=== PATIENT | female | born 1950 | race Caucasian/White ===

== ENCOUNTER 2017-07-21 17:32 | Inpatient (IN) | payer MEDICARE, MEDICAID ==
[~2017-07-21] VITALS: Ht 154.9 cm; Wt 83.9 kg
[2017-07-21] MEDS ORDERED: MELA3TAB PO (17:51)
[2017-07-21] MEDS ORDERED: CALC-261 PO (17:51)
[2017-07-21] MEDS ORDERED: ACET-2605 PO (17:51)
[2017-07-21] MEDS ORDERED: MAG355OR18 PO (17:51)
[2017-07-21] MEDS ORDERED: HALO100A2 IM (17:51)
[2017-07-21] MEDS ORDERED: NA P133E RC (17:51)
[2017-07-21] MEDS ORDERED: ACET-2154 PO (17:51)
[2017-07-21] MEDS ORDERED: FERR325T24 PO (17:51)
[2017-07-21] MEDS ORDERED: BISA10SU12 RC (17:51)
[2017-07-21] MEDS ORDERED: ASCO500C18 PO (17:51)
[2017-07-21] MEDS ORDERED: SENN-167 PO (17:51)
[2017-07-21] MEDS ORDERED: CLON0.5T PO (17:51)
[2017-07-21] MEDS ORDERED: IBUP-1953 PO (17:51)
[2017-07-21] MEDS ORDERED: QUET50TA PO (17:51)
[2017-07-21] MEDS ORDERED: ESCI10TA PO (17:51)
[2017-07-21] MEDS ORDERED: MAGN400O6 PO (17:51)
[2017-07-21 18:08] LABS: BASOPHILS % (AUTO) 0.6 % (0.0-2.0); EOSINOPHILS # (AUTO) 0.6 K/uL (0.0-0.7); EOSINOPHILS % (AUTO) 9.1 % (0.0-7.0); HEMATOCRIT 37.1 % (31.2-41.9); HEMOGLOBIN 12.9 g/dL (10.9-14.3); LYMPHOCYTES # (AUTO) 2.7 K/uL (20.0-40.0); LYMPHOCYTES % (AUTO) 42.1 % (20.5-51.5); MEAN CORPUSCULAR HEMOGLOBIN 28.9 uug (24.7-32.8); MEAN CORPUSCULAR HGB CONC 35 g/dL (32.3-35.6); MEAN CORPUSCULAR VOLUME 82.8 fL (75.5-95.3); MONOCYTES # (AUTO) 0.6 K/uL (2.0-10.0); MONOCYTES % (AUTO) 9.7 % (0.0-11.0); NEUTROPHILS # (AUTO) 2.4 K/uL (1.8-8.9); NEUTROPHILS % (AUTO) 38.5 % (38.5-71.5); PLATELET COUNT (AUTO) 289 K/uL (179-408); RED BLOOD CELL COUNT(AUTO) 4.48 MIL/uL (3.63-4.92); WHITE BLOOD COUNT (AUTO) 6.3 K/uL (3.8-11.8)
[2017-07-21 18:20] LABS: ALANINE AMINOTRANSFERASE 18 U/L (14-59); ALKALINE PHOSPHATASE 87 U/L (50-136); ASPARTATE AMINOTRANSFERASE 15 U/L (15-37); BILIRUBIN,DIRECT 0.1 mg/dL (0.0-0.2); BILIRUBIN,TOTAL 0.3 mg/dL (0.2-1.0); CARBON DIOXIDE 27 mmol/L (21-32); CHLORIDE 98 mmol/L (98-107); CREATININE 0.8 mg/dL (0.6-1.3); GLUCOSE 93 mg/dL (74-106); POTASSIUM 3.8 mmol/L (3.5-5.1); TOTAL PROTEIN, SERUM 7.8 g/dL (6.4-8.2); UREA NITROGEN, BLOOD 14 mg/dL (7-18)
[2017-07-21 18:21] LABS: ACETAMINOPHEN < 2.0 ug/mL (10-30)
[2017-07-21 18:52] LABS: ETHANOL < 3 MG/DL (0-0)
[2017-07-21 19:00] LABS: THYROID STIMULATING HORMONE 2.288 mIU/mL (0.358-3.740)
--- NOTE | 2017-07-21 19:30 | NUR ---
Pt. admitted to [facility], under care of Dr. Snyder Belongs List completed
[2017-07-21] MEDS ORDERED: MAG HYDROX/AL HYDROX/SIMETH 30 ML LIQUID UDC PO PRN (20:00)
[2017-07-21] MEDS ORDERED: MAGNESIUM HYDROXIDE 30 ML LIQUID UDC PO PRN (20:00)
[2017-07-21] MEDS ORDERED: TEMAZEPAM 7.5 MG CAPSULE PO PRN (20:00)
[2017-07-21] MEDS ORDERED: Z GUARD REMEDY PASTE 57 GM TUBE TOP PRN (20:45)
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
--- NOTE | 2017-07-21 21:05 | NUR ---
PER PATIENT PERMISSION, SPOKE WITH LARRY SEYMOUR (PT'S BANANA EXPERT), SHE WAS ADVISED OF PATIENT'S HOLD. SHE STARED THAT SHE BELIEVES THAT PATIENT'S CURRENT PSYCH MEDICATION ARE MAKING HER DELUSIONAL AND PARANOID. SHE IS REQUESTING TO TALK TO DR. ERICKSON. SHE ALSO STARED THAT PATIENT HAD THE PNEUMOCOCCAL VACCINE 0N 06/2017. WILL ENDORSE TO INCOMING SHIFT.
[2017-07-21 21:18] LABS: *BILIRUBIN,URIN NEGATIVE (NEGATIVE); *BLOOD, URINE Trace-intact (NEGATIVE); *CLARITY,URINE CLEAR (CLEAR); *COLOR,URINE LIGHT YELLOW (YELLOW); *KETONES,URINE NEGATIVE (NEGATIVE); *PROTEIN,URINE NEGATIVE (NEGATIVE); *UROBILINOGEN,URINE 0.2 E.U./dl (NORMAL); LEUKOCYTE ESTERASE ,URINE TRACE (NEGATIVE); NITRITE, URINE NEGATIVE (NEGATIVE); UGLUCOSE NEGATIVE (NEGATIVE)
[2017-07-21 21:32] LABS: *AMPHETAMINE, URINE NEGATIVE (NEGATIVE); *BARBITURATE, URINE NEGATIVE (NEGATIVE); *CANNABINOID, URINE NEGATIVE (NEGATIVE); *COCCAINE, URINE NEGATIVE (NEGATIVE); *OPIATE, URINE NEGATIVE (NEGATIVE); *PHENCYCLIDINE SCREEN,URINE NEGATIVE (NEGATIVE)
[2017-07-21 21:43] LABS: SQUAMOUS EPITHELIAL CELL,UR FEW /HPF (NONE SEEN)
[2017-07-21] MEDS: Z GUARD REMEDY PASTE 57 GM TUBE TOP SCH (21:49)
--- NOTE | 2017-07-22 06:36 | NUR ---
PATIENT SLEPT FOR APPROX 7.30HRS THROUGH THE NIGHT. SHE REMAINS COOPERATIVE AND REDIRECTABLE AT THIS TIME.
[2017-07-22 08:00] VITALS: BP 100/54
[2017-07-22] MEDS: Z GUARD REMEDY PASTE 57 GM TUBE TOP SCH ×2 (10:14→21:13)
--- NOTE | 2017-07-22 11:47 | NUR ---
Firearms Report: Cloth Picker completed and submitted [employer] Firearms Report on 07/22/17.
[2017-07-22 16:00] VITALS: BP 159/83
--- NOTE | 2017-07-22 16:27 | NUR ---
Initial DC Instructions: Patient currently resides at [facility] [[address] [place] [address]; [phone]]. Per pt, she does not want to return there upon discharge. Spoke with patient's classification case manager/alleged DPOA, Shayymaryjane Humphrey ([phone]) who states that she would like the patient to return home if she is stable enough. SW will continue to collaborate with pt, family, and MD regarding appropriate discharge plan for this patient. SW will form a safe and proper discharge plan.
[2017-07-22] MEDS: ESCITALOPRAM OXALATE 10 MG TABLET PO SCH (17:38)
[2017-07-22] MEDS: IBUPROFEN 400 MG TABLET PO SCH (17:39)
[2017-07-22] MEDS: TRIHEXYPHENIDYL HCL 2 MG TABLET PO SCH (17:39)
[2017-07-22 20:00] VITALS: BP 140/74
[2017-07-22] MEDS: SENNOSIDES 1 TABLET PO SCH (20:43)
[2017-07-22] MEDS: QUETIAPINE FUMARATE 25 MG TABLET PO SCH (20:43)
[2017-07-22] MEDS: DIVALPROEX 500 MG TABLET.DR PO SCH (20:43)
[2017-07-22] MEDS ORDERED: DIVALPROEX 250 MG TABLET.DR PO SCH (21:00)
[2017-07-23 07:30] VITALS: BP 143/72
[2017-07-23] MEDS: Z GUARD REMEDY PASTE 57 GM TUBE TOP SCH ×2 (08:27→20:04)
[2017-07-23] MEDS ORDERED: Medication Not On Formulary EA (Ascorbic Acid (Vitamin C) 500 MG) PO SCH (09:00)
--- NOTE | 2017-07-23 09:20 | NUR ---
RECEIVED Pt IN THE DAY ROOM, A/O X 2, ABLE TO MAKE HER NEEDS KNOWN AND ABLE TO AMBULATE WITH STEADY GAIT. COMPLIANT WITH MEDS AND CARE STAFF, ATTENDS AND PARTICIPATES IN DAILY GROUP ACTIVITIES. WILL CONTINUE TO MONITOR Pt.
[2017-07-23] MEDS: IBUPROFEN 400 MG TABLET PO SCH ×2 (09:37→16:53)
[2017-07-23] MEDS: DIVALPROEX 500 MG TABLET.DR PO SCH ×2 (09:37→20:05)
[2017-07-23] MEDS: ESCITALOPRAM OXALATE 10 MG TABLET PO SCH (09:38)
[2017-07-23] MEDS: QUETIAPINE FUMARATE 25 MG TABLET PO SCH ×2 (09:38→20:04)
[2017-07-23] MEDS: ASCORBIC ACID 500 MG TABLET PO SCH (09:39)
[2017-07-23] MEDS: TRIHEXYPHENIDYL HCL 2 MG TABLET PO SCH ×2 (09:39→16:53)
[2017-07-23] MEDS: CALCIUM CARB/VITAMIN D 500MG-200UNITS TABLET PO SCH (09:39)
[2017-07-23] MEDS: FERROUS SULFATE 325 MG TABEC PO SCH (09:39)
[2017-07-23] MEDS: NITROFURANTOIN/NITROFURAN MAC 100 MG CAPSULE PO SCH ×2 (09:39→20:04)
[2017-07-23 14:34] VITALS: BP 118/71
[2017-07-23] MEDS: SENNOSIDES 1 TABLET PO SCH (20:04)
[2017-07-23 20:07] VITALS: BP 139/72
--- NOTE | 2017-07-24 06:35 | NUR ---
REMAIN CALM AND COOPERATIVE. SLEPT 8 HRS THROUGH THE NIGHT. NO C/O PAIN OR DISCOMFORT AT THIS TIME. CONTINUE MONITORING FOR SAFETY.
[2017-07-24 08:15] VITALS: BP 117/61
[2017-07-24] MEDS: CALCIUM CARB/VITAMIN D 500MG-200UNITS TABLET PO SCH (08:44)
[2017-07-24] MEDS: QUETIAPINE FUMARATE 25 MG TABLET PO SCH ×2 (08:44→20:00)
[2017-07-24] MEDS: ASCORBIC ACID 500 MG TABLET PO SCH (08:45)
[2017-07-24] MEDS: DIVALPROEX 500 MG TABLET.DR PO SCH ×2 (08:45→20:00)
[2017-07-24] MEDS: TRIHEXYPHENIDYL HCL 2 MG TABLET PO SCH ×2 (08:45→17:08)
[2017-07-24] MEDS: ESCITALOPRAM OXALATE 10 MG TABLET PO SCH (08:45)
[2017-07-24] MEDS: CYANOCOBALAMIN 1000 MCG/ML VIAL IM SCH (08:46)
[2017-07-24] MEDS: NITROFURANTOIN/NITROFURAN MAC 100 MG CAPSULE PO SCH ×2 (08:46→20:00)
[2017-07-24] MEDS: IBUPROFEN 400 MG TABLET PO SCH ×2 (08:46→17:08)
[2017-07-24] MEDS: FERROUS SULFATE 325 MG TABEC PO SCH (08:46)
[2017-07-24] MEDS: Z GUARD REMEDY PASTE 57 GM TUBE TOP SCH ×2 (09:20→20:00)
--- NOTE | 2017-07-24 09:20 | NUR ---
RECEIVED Pt IN DAY ROOM WATCHING TV, A/O X 2, CALM AND PLEASANT, COMPLIANT WITH MEDS AND COOPERATIVE WITH CARE STAFF. CLEAR SPEECH, NOTED DELUSIONS DURING CONVERSATION. Pt ABLE TO HOLD CONVERSATION AND STAY ON TOPIC BUT BECOMES TANGENTIAL AND QUICKLY JUMPS FROM ONE SUBJECT TO ANOTHER. Pt UNDERSTOOD INSTRUCTIONS REGARDING MEDS AND AGREED FOR MEDS TO BE GIVEN/ADMINISTERED BUT BEGAN SHOWING SIGNS OF DELUSION STATING, "OKAY YOU CAN GIVE ME THOSE MEDS SINCE I ALREADY HAD MY BABY LAST NIGHT. I WENT OUT AFTERWARDS AND ACQUIRED NEW SUPERPOWERS." Pt WAS REDIRECTED BY NURSE AFTERWARDS, CONTINUED TO COMPLY WITH MEDS.
[2017-07-24 15:47] VITALS: BP 112/61
[2017-07-24] MEDS: ACETAMINOPHEN 325 MG TABLET PO PRN (19:43)
[2017-07-24 19:54] VITALS: BP 146/58
[2017-07-24] MEDS: SENNOSIDES 1 TABLET PO SCH (20:00)
--- NOTE | 2017-07-25 06:54 | NUR ---
RECEIVED Pt IN THE DAY ROOM WATCHING TV AND CONVERSING WITH PEERS. Pt IS HYPERVERBAL WITH FLAT AFFECT AND PRESSURED SPEECH, CIRCUMSTANTIAL AND TANGENTIAL IN THOUGHT PROCESS. Pt IS ANXIOUS, NEEDY, AND ATTENTION-SEEKING, ASKING FOR MULTIPLE ITEMS SUCH SNACKS, THE TV REMOTE, AND MEDICATIONS. Pt C/O 9/10 KNEE PAIN, TYLENOL 650mg ADMINISTERED WITH GOOD EFFECT. Pt DENIES SI/HI/AH/VH, CFS. APPEARS ANXIOUS AND SOMEWHAT RESTLESS. A+Ox3, VS STABLE. NO AGGRESSIVE BEHAVIORS. IN NO ACUTE PHYSICAL DISTRESS.
[2017-07-25 08:00] VITALS: BP 139/75
[2017-07-25] MEDS: DIVALPROEX 500 MG TABLET.DR PO SCH ×2 (08:50→20:04)
[2017-07-25] MEDS: TRIHEXYPHENIDYL HCL 2 MG TABLET PO SCH ×2 (08:50→17:03)
[2017-07-25] MEDS: NITROFURANTOIN/NITROFURAN MAC 100 MG CAPSULE PO SCH ×2 (08:50→20:05)
[2017-07-25] MEDS: ESCITALOPRAM OXALATE 10 MG TABLET PO SCH (08:51)
[2017-07-25] MEDS: CALCIUM CARB/VITAMIN D 500MG-200UNITS TABLET PO SCH (08:53)
[2017-07-25] MEDS: FERROUS SULFATE 325 MG TABEC PO SCH (08:53)
[2017-07-25] MEDS: CYANOCOBALAMIN 1000 MCG/ML VIAL IM SCH (08:53)
[2017-07-25] MEDS: IBUPROFEN 400 MG TABLET PO SCH ×2 (08:53→17:03)
[2017-07-25] MEDS: QUETIAPINE FUMARATE 25 MG TABLET PO SCH ×2 (08:53→20:04)
[2017-07-25] MEDS: ASCORBIC ACID 500 MG TABLET PO SCH (08:54)
[2017-07-25] MEDS: Z GUARD REMEDY PASTE 57 GM TUBE TOP SCH ×2 (08:54→20:58)
--- NOTE | 2017-07-25 09:05 | NUR ---
RECEIVED Pt IN DAY ROOM WATCHING TV, A/O X 2, CALM AND PLEASANT, COMPLIANT WITH MEDS AND COOPERATIVE WITH CARE STAFF. NO DELUSIONS NOTED DURING ASSESSMENT AND CONVERSATION, Pt IS ABLE TO COMPREHEND REASONS FOR TAKING MEDS AND CARE PLAN. ADMINISTERED ALL MEDS INCLUDING CYANOCOBALAMIN IM INJECTION THIS MORNING.
[2017-07-25 16:29] VITALS: BP 139/71
[2017-07-25 20:00] VITALS: BP 147/80
[2017-07-25] MEDS: SENNOSIDES 1 TABLET PO SCH (20:04)
--- NOTE | 2017-07-26 06:58 | NUR ---
RECEIVED Pt IN THE BATHROOM OF HER ROOM. Pt WAS OVERHEARD TALKING, AND WHEN RN WENT TO CHECK ON HER, Pt WAS FOUND TO BE TALKING TO HERSELF AND UNSEEN OTHERS. Pt OVERHEARD RTIS, MAKING NON-SENSICAL AND BIZARRE STATEMENTS. WHEN ASKED IF SHE WAS OK, Pt RESPONDED, YES, IM JUST HAVING A CONVERSATION WITH MYSELF. DENIES SI/HI, CFS. VS STABLE, DENIES PAIN, IN NO ACUTE PHYSICAL DISTRESS. SLEPT 5.30 HOURS.
[2017-07-26 07:30] VITALS: BP 137/78
[2017-07-26] MEDS: DIVALPROEX 500 MG TABLET.DR PO SCH ×2 (08:57→21:25)
[2017-07-26] MEDS: FERROUS SULFATE 325 MG TABEC PO SCH (08:57)
[2017-07-26] MEDS: NITROFURANTOIN/NITROFURAN MAC 100 MG CAPSULE PO SCH ×2 (08:57→21:25)
[2017-07-26] MEDS: CYANOCOBALAMIN 1000 MCG/ML VIAL IM SCH (08:57)
[2017-07-26] MEDS: TRIHEXYPHENIDYL HCL 2 MG TABLET PO SCH ×2 (08:57→16:40)
[2017-07-26] MEDS: QUETIAPINE FUMARATE 25 MG TABLET PO SCH ×2 (08:57→21:26)
[2017-07-26] MEDS: IBUPROFEN 400 MG TABLET PO SCH ×2 (08:57→16:40)
[2017-07-26] MEDS: ASCORBIC ACID 500 MG TABLET PO SCH (08:57)
[2017-07-26] MEDS: CALCIUM CARB/VITAMIN D 500MG-200UNITS TABLET PO SCH (08:58)
[2017-07-26] MEDS: ESCITALOPRAM OXALATE 10 MG TABLET PO SCH (08:58)
[2017-07-26] MEDS: Z GUARD REMEDY PASTE 57 GM TUBE TOP SCH ×2 (08:59→21:56)
[2017-07-26 15:37] VITALS: BP 127/69
--- NOTE | 2017-07-26 18:00 | NUR ---
GPS: Pt remained stable during shift. Noted responding to internal stimuli while ambulating in hallways then smiles at staff upon eye contact. Mood elated. Denies SI/HI, CFS. VS stable. Took all due meds. Receiving Macrobid for UTI. No adverse side effects noted. Continent and voiding freely. Noted with clear yellow urine. Denies burning sensation. Taking PO fluids well. Afebrile. All needs met at this time. Will continue to monitor.
[2017-07-26 20:00] VITALS: BP 148/69
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
[2017-07-26] MEDS: SENNOSIDES 1 TABLET PO SCH (21:29)
--- NOTE | 2017-07-27 07:04 | NUR ---
PATIENT SLEPT FOR APPROX 5.30 HRS THROUGH THE NIGHT. SHE HAD A SHOWER,
[2017-07-27 07:30] VITALS: BP 131/85
[2017-07-27] MEDS: NITROFURANTOIN/NITROFURAN MAC 100 MG CAPSULE PO SCH (09:00)
[2017-07-27] MEDS: FERROUS SULFATE 325 MG TABEC PO SCH (09:00)
[2017-07-27] MEDS: CYANOCOBALAMIN 1000 MCG/ML VIAL IM SCH (09:00)
[2017-07-27] MEDS: ASCORBIC ACID 500 MG TABLET PO SCH (09:00)
[2017-07-27] MEDS: CALCIUM CARB/VITAMIN D 500MG-200UNITS TABLET PO SCH (09:00)
[2017-07-27] MEDS: DIVALPROEX 500 MG TABLET.DR PO SCH ×2 (09:00→20:02)
[2017-07-27] MEDS: TRIHEXYPHENIDYL HCL 2 MG TABLET PO SCH ×2 (09:00→16:21)
[2017-07-27] MEDS: IBUPROFEN 400 MG TABLET PO SCH ×2 (09:00→16:21)
[2017-07-27] MEDS: ESCITALOPRAM OXALATE 10 MG TABLET PO SCH (09:00)
[2017-07-27] MEDS: Z GUARD REMEDY PASTE 57 GM TUBE TOP SCH ×2 (09:00→20:02)
[2017-07-27 15:23] VITALS: BP 130/63
[2017-07-27] MEDS: CLONAZEPAM 0.5 MG TABLET PO PRN (16:21)
--- NOTE | 2017-07-27 18:29 | NUR ---
patient has been out of control most of shift calling nurse derogatory names and balling fist up , medicated with klonopin 0.5mg at 1625 with fair results,then at 18 30 started yelling agin very dis organized and flight of ideas , continue to monitor for behavior
[2017-07-27] MEDS: SENNOSIDES 1 TABLET PO SCH (20:02)
--- NOTE | 2017-07-27 20:15 | NUR ---
RECEIVED PATIENT IN HER ROOM. SHE IS NOTED A/O X 2. SHE IS ABLE TO AMBULATE WITH STEADY GAIT AND ABLE TO MAKE HER NEEDS KNOWN. UPON INTERVIEW, SHE IS NOTED WITH FLIGHT OF IDEAS, TANGENTIAL, HYPERVERBAL, CONFUSED, SHE STATED, "MY BROTHER PASS AWAY, SO I WOULD LIKE TO HAVE HIS WATCH, HOW DO I GET HIS WATCH"? PT WAS REDIRECTED AND REASSURED. PT DENIES SI, DENIES AH/VH AT THIS TIME. SHE REMAINS MEDICATION COMPLIANT WITH MEDICATION REGIMENT. HER B/P WAS AT 1999 WAS 166/77MMHG AND HER PULSE IS 72BPM. PATIENT WAS GIVEN ALL HER QHS MEDICATIONS, INCLUDING SEROQUEL 100MG PO. WILL RECHECK BP IN ONE HOUR. SAFETY WAS EMPHASIS. WE WILL CONTINUE TO MONITOR CLOSELY.
[2017-07-27] MEDS ORDERED: QUETIAPINE FUMARATE 100 MG TABLET PO SCH (21:00)
--- NOTE | 2017-07-27 21:30 | NUR ---
B/P WAS RECHECKED: 101/36MMGH AND PULSE 91. WE WILL RECHECKS IN ONE HOUR. WILL CONTINUE TO MONITOR CLOSELY.
[2017-07-27 22:21] VITALS: BP 101/36
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
--- NOTE | 2017-07-28 07:00 | NUR ---
RECEIVED REPORT FROM KILN REPAIRER, PATIENT IN RECREATIONAL ROOM, NO ACUTE DISTRESS NOTED. NO SI NOTED. COMPLIANT WITH MEDICATION AND CARE. SAFETY PRECAUTIONS OBSERVED AT ALL TIMES. NO COMPLAINTS OF PAIN/DISCOMFORT AT THIS TIME.COMFORT MEASURES PROVIDED. WILL CONTINUE TO MONITOR CLOSELY.
[2017-07-28 07:30] VITALS: BP 130/64
[2017-07-28] MEDS: CYANOCOBALAMIN 1000 MCG/ML VIAL IM SCH (08:57)
[2017-07-28] MEDS: ESCITALOPRAM OXALATE 10 MG TABLET PO SCH (08:57)
[2017-07-28] MEDS: DIVALPROEX 500 MG TABLET.DR PO SCH ×2 (08:57→20:20)
[2017-07-28] MEDS: CALCIUM CARB/VITAMIN D 500MG-200UNITS TABLET PO SCH (08:57)
[2017-07-28] MEDS: ASCORBIC ACID 500 MG TABLET PO SCH (08:57)
[2017-07-28] MEDS: FERROUS SULFATE 325 MG TABEC PO SCH (09:00)
[2017-07-28] MEDS: IBUPROFEN 400 MG TABLET PO SCH ×2 (09:00→17:02)
[2017-07-28] MEDS: TRIHEXYPHENIDYL HCL 2 MG TABLET PO SCH ×2 (09:01→17:02)
[2017-07-28] MEDS: QUETIAPINE FUMARATE 25 MG TABLET PO SCH (09:03)
[2017-07-28] MEDS: Z GUARD REMEDY PASTE 57 GM TUBE TOP SCH ×2 (09:04→20:20)
[2017-07-28 14:39] VITALS: BP 142/76
--- NOTE | 2017-07-28 17:48 | NUR ---
PATIENT IN RECREATION ROOM, EATING DINNER. NO ACUTE DISTRESS NOTED. COMPLIANT WITH MEDICATION AND CARE. NO S/S OF ANXIETY/AGITATION AT THIS TIME. ALL NEEDS ATTENDED AND ANTICIPATED. WILL CONTINUE TO MONITOR.
[2017-07-28 20:00] VITALS: BP 126/65
[2017-07-28] MEDS: QUETIAPINE FUMARATE 100 MG TABLET PO SCH (20:18)
[2017-07-28] MEDS: SENNOSIDES 1 TABLET PO SCH (20:20)
--- NOTE | 2017-07-28 21:12 | NUR ---
RECEIVED Pt IN DAY ROOM WATCHING TV, A/O X 2, CALM AND PLEASANT, COMPLIANT WITH MEDS AND COOPERATIVE WITH CARE STAFF. SLIGHT DELUSIONS NOTED DURING CONVERSATION, Pt STATING AT TIMES, "I GOT NEW SUPERPOWERS AGAIN, ASK GERTRUDE WHEN YOU SEE HIM." Pt REDIRECTED AND ABLE TO RETURN TO TOPIC OF CONVERSATION EASILY. DENIES SI AND AGREES TO CFS.
--- NOTE | 2017-07-29 06:29 | NUR ---
Pt SLEPT WELL THROUGHOUT THE NIGHT, WOKE UP THIS MORNING ASKING FOR A SHOWER. WAS GIVEN SHOWER, Pt NOW IN DAY ROOM WATCHING TV. COMPLIANT WITH MEDS AND CARE STAFF. DENIES PAIN AT THIS TIME, NO AGGRESSIVE BEHAVIOR NOTED.
--- NOTE | 2017-07-29 07:00 | NUR ---
RECEIVED REPORT FROM BELT AND LINK SHOP SUPERVISOR NURSE. PATIENT IN BED ASLEEP NO ACUTE DISTRESS NOTED. NO AGITATION/SI NOTED AT THIS TIME. CONTINUES TO BE COMPLIANT WITH MEDICATIONS. NO C/O PAIN/DISCOMFORT. COMFORT MEASURES PROVIDED. WILL CONTINUE TO MONITOR.
[2017-07-29 08:00] VITALS: BP 129/64
[2017-07-29] MEDS: DIVALPROEX 500 MG TABLET.DR PO SCH ×2 (08:09→20:18)
[2017-07-29] MEDS: ASCORBIC ACID 500 MG TABLET PO SCH (08:09)
[2017-07-29] MEDS: CALCIUM CARB/VITAMIN D 500MG-200UNITS TABLET PO SCH (08:09)
[2017-07-29] MEDS: CYANOCOBALAMIN 1000 MCG/ML VIAL IM SCH (08:09)
[2017-07-29] MEDS: IBUPROFEN 400 MG TABLET PO SCH ×2 (08:11→16:47)
[2017-07-29] MEDS: ESCITALOPRAM OXALATE 10 MG TABLET PO SCH (08:11)
[2017-07-29] MEDS: FERROUS SULFATE 325 MG TABEC PO SCH (08:11)
[2017-07-29] MEDS: TRIHEXYPHENIDYL HCL 2 MG TABLET PO SCH ×2 (08:11→16:47)
[2017-07-29] MEDS: Z GUARD REMEDY PASTE 57 GM TUBE TOP SCH ×2 (08:11→20:43)
[2017-07-29] MEDS: QUETIAPINE FUMARATE 25 MG TABLET PO SCH (08:22)
[2017-07-29 16:23] VITALS: BP 125/62
--- NOTE | 2017-07-29 18:12 | NUR ---
PATIENT IN DAY ROOM, CURRENTLY WATCHING TV, ATE DINNER WITH GOOD APPETITE. COMPLIANT WITH MEDICATIONS, NO EPISODES OF AGITATION/PSYCHOTIC BEHAVIOR THROUGHOUT SHIFT. DENIES SI. ALL NEEDS ATTENDED AND ANTICIPATED. WILL CONTINUE TO MONITOR.
[2017-07-29 20:00] VITALS: BP 125/50
[2017-07-29] MEDS: QUETIAPINE FUMARATE 100 MG TABLET PO SCH (20:18)
[2017-07-29] MEDS: SENNOSIDES 1 TABLET PO SCH (20:18)
--- NOTE | 2017-07-30 06:39 | NUR ---
GPS: Remain calm and cooperative with medications and care. slept 6 hrs through the night.no agitation noted at this time. continue plan of care.
--- NOTE | 2017-07-30 07:25 | NUR ---
RECEIVED Pt IN DAY ROOM WATCHING TV, A/O X 2, CALM AND PLEASANT, COMPLIANT WITH MEDS AND COOPERATIVE WITH CARE STAFF. SLIGHT DELUSIONS NOTED DURING CONVERSATION, . DENIES SI AND AGREES TO CFS.
[2017-07-30 07:30] VITALS: BP 125/59
[2017-07-30] MEDS: DIVALPROEX 500 MG TABLET.DR PO SCH ×2 (08:06→20:21)
[2017-07-30] MEDS: TRIHEXYPHENIDYL HCL 2 MG TABLET PO SCH ×2 (08:06→16:02)
[2017-07-30] MEDS: ASCORBIC ACID 500 MG TABLET PO SCH (08:06)
[2017-07-30] MEDS: QUETIAPINE FUMARATE 100 MG TABLET PO SCH ×2 (08:06→20:22)
[2017-07-30] MEDS: CALCIUM CARB/VITAMIN D 500MG-200UNITS TABLET PO SCH (08:06)
[2017-07-30] MEDS: IBUPROFEN 400 MG TABLET PO SCH ×2 (08:07→16:02)
[2017-07-30] MEDS: FERROUS SULFATE 325 MG TABEC PO SCH (08:07)
[2017-07-30] MEDS: ESCITALOPRAM OXALATE 10 MG TABLET PO SCH (08:07)
[2017-07-30] MEDS: CYANOCOBALAMIN 1000 MCG/ML VIAL IM SCH (08:08)
[2017-07-30] MEDS: Z GUARD REMEDY PASTE 57 GM TUBE TOP SCH ×2 (08:08→20:35)
[2017-07-30] MEDS ORDERED: QUETIAPINE FUMARATE 25 MG TABLET PO SCH (09:00)
[2017-07-30 15:03] VITALS: BP 103/66
--- NOTE | 2017-07-30 15:24 | NUR ---
WEDNESDAY Discharge Note: Patient will be discharged back home [[address] [place] [address]; [phone]] via private transportation at 11am. Spoke with patient's brother, Yony Diaz ([phone]) who is willing to provide transportation and is aware and agreeable with discharge plans. Spoke with patient's caregiver, Shayy Humphrey ([phone]) who is also aware and agreeable with discharge plans. Patient is aware and agreeable with discharge plans. Patient will follow-up with her Primary Care Physician, Dr. Nuñez [[address] [place] [address]; [phone]) and her outpatient Psychiatrist, Dr. Orlando Rivas [[facility] [address] [place] [address]; ]. Home Health order was faxed to [facility] (tel. [phone]; fax [phone]) for medication management, PT and OT. Spoke with Payton in Intake, and patient was accepted with start of care on 08/02/17. For smoking cessation, patient was referred to [facility] [employer] 800-LUNGUSA and [facility] [employer] [phone]. Patient was provided with outpatient mental health resources to [facility] , [facility] , and the National Suicide Prevention Lifeline .
[2017-07-30 20:04] VITALS: BP 121/55
[2017-07-30] MEDS: SENNOSIDES 1 TABLET PO SCH (20:22)
--- NOTE | 2017-07-30 20:30 | NUR ---
RECEIVED Pt IN DAY ROOM WATCHING TV, NOTED SLIGHT DELUSIONS BUT WAS ABLE TO HOLD CONVERSATION WITH NURSE DURING ASSESSMENT. Pt UNDERSTANDS THAT SHE IS GOING HOME TOMORROW. COMPLIANT AND COOPERATIVE WITH MEDS AND CARE STAFF. NO AGGRESSIVE BX OR DISTRESS NOTED.
--- NOTE | 2017-07-30 21:30 | NUR ---
Pt WAS FOUND LAYING ON THE FLOOR OUTSIDE OF HER ROOM, YELLING FOR HELP. NURSE AND OTHER UNIT STAFF RUSHED TO ATTEND TO Pt NEEDS. WHEN ASKED WHAT HAPPENED, Pt STATED, "I WAS WALKING TOO FAST WITH MY WALKER AND FELL." Pt WAS ASSESSED FOR INJURY, VS WERE TAKEN AND RECORD. NO INJURIES FOUND, VS STABLE. CALLED AND LEFT MESSAGE TO NOTIFY DR. KRUEGER. WILL CALL PSYCHIATRIST TO NOTIFY OF INCIDENT. Pt CURRENTLY DENIES PAIN AND NO DISTRESS NOTED.
--- NOTE | 2017-07-30 23:57 | NUR ---
Patient noted to be walking around with her walker in the hallway back-forth, appeared anxious and said she can't wait to be discharged tomorrow. Assisted patient back to bed and offered Temazepam to patient for her to sleep. Will continue to monitor the patient.
--- NOTE | 2017-07-31 01:15 | NUR ---
Seen patient during hourly rounds still awake but already in bed. I asked the patient if she's okay, per patient " I can't wait to go home tomorrow." Encourage patient to try and sleep again since it's past midnight already. Patient agreed and said she will. Will continue to monitor patient.
--- NOTE | 2017-07-31 04:15 | NUR ---
Patient found on floor inside the restroom, in a sitting position with her walker in front of her, calling for help. Her gown, socks,in between her legs and her walkway noted to be wet. When asked patient what happened, per patient " I wanted to pee badly that's why I got up by myself to go to the bathroom." Assessed patient for any injury, no injury noted. V/S taken and recorded, WNL. Will call on-call MD, Psychiatrist and RN Vinegar Maker on duty to notify the incident. Denies of any pain. Will continue to monitor the patient..
--- NOTE | 2017-07-31 04:25 | NUR ---
MD Dr. Garcia informed, with new order of CT scan on the head w/o contrast, noted and carried out. RN filtration supervisor also made aware. Will call Psychiatrist. Will continue to monitor the patient.
--- NOTE | 2017-07-31 06:52 | NUR ---
DR ERICKSON WAS NOTIFY OF PATIENT FALLS X 2. PER DR ERICKSON, TO HOLD DISCHARGE UNTIL WEDNESDAY. WE WILL CONTINUE TO MONITOR.
[2017-07-31 07:30] VITALS: BP 140/67
--- NOTE | 2017-07-31 07:30 | NUR ---
GPS: Shift report given by nightshift RN. Pt in bed asleep, easily arousable to name. Status post fall during noc shift. Head CT negative. A&O to person and place. Sustained no injuries. Denies pain at this time. Pt will have 1:1 sitter for safety. Educated pt on asking for assistance everytime she needs to use the restroom or wants to transfer out of bed and ambulate with her FWW. Verbalized understanding. All needs met at this time. Will continue to monitor for change.
--- NOTE | 2017-07-31 07:59 | NUR ---
LEFT MESSAGE TO BROTHKAYLYN REARDON AT [phone] AND [phone] ABOUT PATIENT HOLD DISCHARGED DUE TO FALLS X2 PER DR. ERICKSON. WILL CONTINUE TO MONITOR.
[2017-07-31] MEDS: TRIHEXYPHENIDYL HCL 2 MG TABLET PO SCH ×2 (08:33→16:41)
[2017-07-31] MEDS: ASCORBIC ACID 500 MG TABLET PO SCH (08:33)
[2017-07-31] MEDS: IBUPROFEN 400 MG TABLET PO SCH ×2 (08:33→16:41)
[2017-07-31] MEDS: QUETIAPINE FUMARATE 100 MG TABLET PO SCH ×2 (08:34→21:05)
[2017-07-31] MEDS: DIVALPROEX 500 MG TABLET.DR PO SCH ×2 (08:34→21:05)
[2017-07-31] MEDS: CALCIUM CARB/VITAMIN D 500MG-200UNITS TABLET PO SCH (08:34)
[2017-07-31] MEDS: ESCITALOPRAM OXALATE 10 MG TABLET PO SCH (08:34)
[2017-07-31] MEDS: FERROUS SULFATE 325 MG TABEC PO SCH (08:34)
[2017-07-31] MEDS: Z GUARD REMEDY PASTE 57 GM TUBE TOP SCH ×2 (08:35→21:06)
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
[2017-07-31] MEDS: ACETAMINOPHEN 325 MG TABLET PO PRN (11:18)
[2017-07-31 16:42] VITALS: BP 105/63
--- NOTE | 2017-07-31 18:31 | NUR ---
GPS: Pt remained in fair condition during shift. 1:1 sitter at side at all times for safety. Continues to be sad and depressed. Appears to be withdrawn and anxious at times. Took all due meds. Compliant with plan of care at this time. Able to provide self care without prompting needed. Assisted as needed for safety. Status post fall during noc shift. No s/s of injury noted. Denies pain. No change in LOC. All needs met at this time. Will continue to monitor for change.
[2017-07-31 20:30] VITALS: BP 128/60
[2017-07-31] MEDS: SENNOSIDES 1 TABLET PO SCH (21:05)
[2017-07-31] MEDS: CLONAZEPAM 0.5 MG TABLET PO PRN (21:50)
--- NOTE | 2017-08-01 02:38 | NUR ---
On 1:1 sitter at bedside. Had some periods of agitation this shift. Klonopin given as needed. Fall precautions maintained. Needs attended, Will monitor patient. No complaints presented during shift. No delusional episodes or hallucinations noted. Compliant with meds.
[2017-08-01 07:30] VITALS: BP 131/54
--- NOTE | 2017-08-01 07:30 | NUR ---
GPS: Shift report given by nightshift RN. Rec'd in bed asleep, easily arousable to name. 1:1 sitter at bedside for safety. Pt in fair condition. No s/s of acute distress noted. Rec'd PRN Klonopin during noc shift for episode of agitation. Will continue to monitor for further episode of agitation and behavioral manifestations.
[2017-08-01] MEDS: CALCIUM CARB/VITAMIN D 500MG-200UNITS TABLET PO SCH (08:01)
[2017-08-01] MEDS: ASCORBIC ACID 500 MG TABLET PO SCH (08:01)
[2017-08-01] MEDS: DIVALPROEX 500 MG TABLET.DR PO SCH ×2 (08:01→20:23)
[2017-08-01] MEDS: Z GUARD REMEDY PASTE 57 GM TUBE TOP SCH ×2 (08:02→20:23)
[2017-08-01] MEDS: TRIHEXYPHENIDYL HCL 2 MG TABLET PO SCH ×2 (08:02→16:43)
[2017-08-01] MEDS: ESCITALOPRAM OXALATE 10 MG TABLET PO SCH (08:02)
[2017-08-01] MEDS: QUETIAPINE FUMARATE 100 MG TABLET PO SCH ×2 (08:02→20:23)
[2017-08-01] MEDS: IBUPROFEN 400 MG TABLET PO SCH ×2 (08:02→16:43)
[2017-08-01] MEDS: FERROUS SULFATE 325 MG TABEC PO SCH (08:02)
[2017-08-01] MEDS: CLONAZEPAM 0.5 MG TABLET PO PRN (09:23)
[2017-08-01] MEDS: CLOTRIMAZOLE/BETAMET DIPROP CREAM 15 GM TUBE TOP SCH ×2 (15:25→20:23)
[2017-08-01 15:36] VITALS: BP 127/69
[2017-08-01] MEDS: SENNOSIDES 1 TABLET PO SCH (20:23)
--- NOTE | 2017-08-01 20:53 | NUR ---
gps: patient c/o constipation.mom 30 ml po given.
[2017-08-01 22:24] VITALS: BP 139/73
--- NOTE | 2017-08-02 06:10 | NUR ---
REMAIN CALM AND COOPERATIVE WITH MEDICATIONS AND CARE. CONTINUE ON 1:1 SITTER @ BEDSIDE FOR SAFETY.SLEPT 6 HRS THROUGH THE NIGHT.NO BEHAVIOR PROBLEM NOTED. CONTINUE PLAN OF CARE.
[2017-08-02 07:30] VITALS: BP 136/65
[2017-08-02] MEDS: FERROUS SULFATE 325 MG TABEC PO SCH (08:02)
[2017-08-02] MEDS: TRIHEXYPHENIDYL HCL 2 MG TABLET PO SCH ×2 (08:02→16:17)
[2017-08-02] MEDS: DIVALPROEX 500 MG TABLET.DR PO SCH (08:02)
[2017-08-02] MEDS: QUETIAPINE FUMARATE 100 MG TABLET PO SCH (08:02)
[2017-08-02] MEDS: IBUPROFEN 400 MG TABLET PO SCH ×2 (08:02→16:17)
[2017-08-02] MEDS: ASCORBIC ACID 500 MG TABLET PO SCH (08:02)
[2017-08-02] MEDS: CALCIUM CARB/VITAMIN D 500MG-200UNITS TABLET PO SCH (08:02)
[2017-08-02] MEDS: ESCITALOPRAM OXALATE 10 MG TABLET PO SCH (08:02)
[2017-08-02] MEDS: CLOTRIMAZOLE/BETAMET DIPROP CREAM 15 GM TUBE TOP SCH (09:43)
[2017-08-02] MEDS: Z GUARD REMEDY PASTE 57 GM TUBE TOP SCH (09:44)
--- NOTE | 2017-08-02 13:32 | NUR ---
Updated Discharge Note: Patient will be discharged to [facility] [[address] [place] [address]; [phone]] via ambulance. Spoke with CJ at the facility who states that they are ready to accept the patient today. Spoke with patients brotherYony ([phone]) who is aware and agreeable with discharge plans. Left message for patients anatomic pathology manager, Shayy ([phone]) to alert about patients discharge plans. Patient is aware and agreeable with discharge plans. Patient will follow up at the facility with Dr. Gu (Solution Spec) and Dr. Oreilly (Psychiatrist).
[2017-08-02 15:38] VITALS: BP 115/71
--- NOTE | 2017-08-02 18:45 | NUR ---
GPS: Nursing Notes: Discharge Notes: Patient is awake and responding to her name, cooperative with nursing care, compliant with her medications, denies any SI/HI, denies any AH/VH, denies any pain or discomfort, denies any SOB, discharge to [facility] at [address] [place] [id number] , report given to Marlene RN labor relations supervisor. film processing utility worker spoke with patient's brother, Yony ([phone]) who is aware and agreeable with discharge plans. Left message for patient's flame burner, Shayy ([phone]) to alert him about patients discharge plans. Patient will follow up at the facility with Dr. Gu (Horse Stud Worker) and Dr. Oreilly (Psychiatrist) for aftercare.
[2017-08-06] MEDS ORDERED: CYANOCOBALAMIN 1000 MCG/ML VIAL IM SCH (09:00)
[2017-09-26] MEDS ORDERED: CYANOCOBALAMIN 1000 MCG/ML VIAL IM SCH (09:00)
== END 2017-08-02 18:45 | disposition hospice, inpatient (51) | DRG 885 ==
LOC: ER 17:36 → GPS 19:12
PROVIDERS: ADMIT Psychiatry & Neurology Psychiatry; ATTEND Nurse Practitioner Acute Care
DX: F25.0 Schizoaffective disorder, bipolar type (principal); E44.1 Mild protein-calorie malnutrition; N39.0 Urinary tract infection, site not specified; G31.9 Degenerative disease of nervous system, unspecified; G89.29 Other chronic pain; Z79.899 Other long term (current) drug therapy; M54.5 Low back pain; M19.90 Unspecified osteoarthritis, unspecified site; Z68.35 Body mass index [BMI] 35.0-35.9, adult; E78.5 Hyperlipidemia, unspecified; D51.0 Vitamin B12 deficiency anemia due to intrinsic factor deficiency; G31.84 Mild cognitive impairment of uncertain or unknown etiology
CPT/HCPCS: 36415; 70030-TC; 70450; 71045; 80164; 80307; 83605; 84443; 85025; 85730; 87040; 87086; 93005; A4663; G0480; G0480-TC; J3420

== ENCOUNTER 2020-12-10 18:06 | Inpatient (IN) | payer MEDICARE, OTHER ==
[~2020-12-10] VITALS: Ht 152.4 cm; Wt 83.9 kg
[~2020-12-10 18:06] MED LIST: ACET-2154 PO; ACET-2605 PO; ASCO500C18 PO; BISA10SU12 RC; CALC-261 PO; FERR325T24 PO; IBUP-1953 PO; MAG355OR18 PO; MAGN400O6 PO; NA P133E RC; SENN-261 PO
[2020-12-10] MEDS ORDERED: MAGN400O6 PO (19:18)
[2020-12-10] MEDS ORDERED: CIPR-263 PO (19:18)
[2020-12-10] MEDS ORDERED: PSYL822P20 PO (19:18)
[2020-12-10] MEDS ORDERED: VITAMIN D PO (19:18)
[2020-12-10] MEDS ORDERED: DIVA250T4 PO (19:18)
[2020-12-10] MEDS ORDERED: ACET-2154 PO (19:18)
[2020-12-10] MEDS ORDERED: CRAN500T3 PO (19:18)
[2020-12-10] MEDS ORDERED: BUPR300T52 PO (19:18)
[2020-12-10] MEDS ORDERED: HALO10TA13 PO (19:18)
[2020-12-10] MEDS ORDERED: LATA2.5D2 EACHEYE (19:18)
[2020-12-10] MEDS ORDERED: DOCU100C36 PO (19:18)
[2020-12-10] MEDS ORDERED: MULT-213 PO (19:18)
[2020-12-10] MEDS ORDERED: QUER1POW PO (19:18)
[2020-12-10] MEDS ORDERED: BENZ0.5T43 PO (19:18)
[2020-12-10] MEDS ORDERED: BISA10SU61 RC (19:18)
[2020-12-10] MEDS ORDERED: NA P133E RC (19:18)
[2020-12-10] MEDS ORDERED: ASCO500T10 PO (19:18)
[2020-12-10] MEDS ORDERED: IBUP-1953 PO (19:18)
[2020-12-10 19:19] LABS: HEMATOCRIT 38.5 % (31.2-41.9); MEAN CORPUSCULAR HEMOGLOBIN 30.5 uug (24.7-32.8); PLATELET COUNT (AUTO) 193 K/uL (179-408)
--- NOTE | 2020-12-10 19:20 | NUR ---
Patient brought in from [facility] for agressive combative behavior. Ambulatory with braxton. A&Ox2. Hyperverbal. Delusional. Cooperative. AWOL risk per paperwork. Sinus rhythm on the monitor. BPs unremarkable. afebrile. edematous in romina lower extremities No respiratory distress. Sats >94% on room air. GI/: incontinent. changed lines + put in gown after soiling herself - x1. ascites noted to abdomen. no pain.
[2020-12-10 19:25] LABS: CARBON DIOXIDE 27 mmol/L (21-32); CHLORIDE 100 mmol/L (98-107); CREATININE 0.8 mg/dL (0.6-1.3); GLUCOSE 95 mg/dL (74-106); POTASSIUM 3.8 mmol/L (3.5-5.1); UREA NITROGEN, BLOOD 16 mg/dL (7-18)
[2020-12-10 19:28] LABS: ETHANOL < 3 MG/DL (0-0)
[2020-12-10 19:32] LABS: ACETAMINOPHEN < 2.0 ug/mL (10-30); ALANINE AMINOTRANSFERASE 10 U/L (14-59); ALKALINE PHOSPHATASE 68 U/L (50-136); ASPARTATE AMINOTRANSFERASE 8 U/L (15-37); BILIRUBIN,DIRECT 0.1 mg/dL (0.0-0.2); BILIRUBIN,TOTAL 0.2 mg/dL (0.2-1.0); TOTAL PROTEIN, SERUM 6.9 g/dL (6.4-8.2)
[2020-12-10 19:41] LABS: THYROID STIMULATING HORMONE 2.301 mIU/mL (0.358-3.740)
--- NOTE | 2020-12-10 19:44 | NUR ---
Patient to go to room 145-B Addendum: 12/10/20 at 2045 by KMORADI 141-B
--- NOTE | 2020-12-10 20:06 | NUR ---
Catrina from crisis team paged
--- NOTE | 2020-12-10 20:06 | NUR ---
Patient is DNR per POLST
[2020-12-10] MEDS ORDERED: NITROFURANTOIN/NITROFURAN MAC 100 MG CAPSULE PO ONE (20:15)
--- NOTE | 2020-12-10 21:20 | NUR ---
Contacted Catrina oneal/ crisis team for update. States she isnt finished at [facility] yet. No eta given.
--- NOTE | 2020-12-10 21:33 | NUR ---
Catrina from crisis team with call to say she will not be able to make it - states that she will contact Nickie who is phone manager at 10PM Nickie did not answer my call (first attempt)
--- NOTE | 2020-12-10 21:52 | NUR ---
Catrina with call to say that Nickie is on her way
--- NOTE | 2020-12-10 23:00 | NUR ---
Patient has been placed on a 5150 for DTO + GD by [facility] team.
--- NOTE | 2020-12-10 23:17 | NUR ---
Bed bath given. No distress noted. Stable condition.
[2020-12-10] MEDS ORDERED: ACETAMINOPHEN 325 MG TABLET PO PRN (23:45)
[2020-12-10] MEDS ORDERED: BLOOD SUGAR DIAGNOSTIC 1 EACH STRIP VI ONE (23:45)
[2020-12-10] MEDS ORDERED: MAG HYDROX/AL HYDROX/SIMETH 30 ML LIQUID UDC PO PRN (23:45)
[2020-12-10] MEDS ORDERED: MAGNESIUM HYDROXIDE 30 ML LIQUID UDC PO PRN (23:45)
--- NOTE | 2020-12-11 00:01 | NUR ---
Patient taken to MHU in stable condition. VSS. No distress. All belongings w/ patient.
[2020-12-11] MEDS: TEMAZEPAM 7.5 MG CAPSULE PO PRN ×2 (00:46→22:37)
[2020-12-11 02:55] VITALS: BP 160/80
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
[2020-12-11 07:30] VITALS: BP 161/90
[2020-12-11 07:33] LABS: BILIRUBIN,TOTAL 0.4 mg/dL (0.2-1.0); CREATININE 0.7 mg/dL (0.6-1.3); TOTAL PROTEIN, SERUM 6.9 g/dL (6.4-8.2)
--- NOTE | 2020-12-11 11:09 | NUR ---
Firearms Report: Perforator Operator Oil Well completed and submitted a [employer] firearms report for 5150 grave disability certifications. A copy of report has been placed in patient chart.
--- NOTE | 2020-12-11 11:22 | NUR ---
SARAH Family Contact: SW contacted patient's brother Sreekanth Diaz ([phone]) and discussed treatment and discharge plan. Ervin stated he is the patient's conservator however he stated he does not have the documents and that [facility] has them and to request them from them.
--- NOTE | 2020-12-11 11:29 | NUR ---
SARAH SNF Contact: SARAH spoke with Perri admissions at [facility] ([phone]) who stated patient is welcome back upon discharge. SARAH requested to check patient's conservatorship documents. Perri will check if there are such documents and call this SW back.
--- NOTE | 2020-12-11 11:39 | NUR ---
SARAH Initial Discharge Plan: PT resides at [address] ([phone]). Pt will return to facility upon discharge. PTs brother Hughyazmin Emily ([phone]) is involved in the patients care. SARAH will work with the PT and the MD regarding appropriate discharge planning.
[2020-12-11] MEDS ORDERED: [UNRECOGNIZED DRUG - REMARK] PO SCH (15:45)
[2020-12-11] MEDS ORDERED: MAG HYDROX/AL HYDROX/SIMETH 30 ML LIQUID UDC PO PRN (15:45)
[2020-12-11] MEDS ORDERED: BISACODYL 10 MG SUPP.RECT RC PRN (15:45)
[2020-12-11] MEDS ORDERED: MAGNESIUM HYDROXIDE 30 ML LIQUID UDC PO PRN (15:45)
[2020-12-11] MEDS ORDERED: ACETAMINOPHEN 325 MG TABLET PO SCH (15:45)
[2020-12-11 16:40] VITALS: BP 127/78
[2020-12-11] MEDS ORDERED: Medication Not On Formulary EA (Cranberry Extract (Cranberry) 900 MG) PO SCH (17:00)
[2020-12-11 19:00] VITALS: BP 173/73
--- NOTE | 2020-12-11 19:07 | NUR ---
Pt was on the patio, walking with a FWW. pt missed the bench and felt. Pt scraped a left elbow. Pt was assisted to get up. Pt was not noted to have any other injuries. VS were taken 174/89, Pulse 106, t 98.9. Pt is not making sense as per baseline, states she is about to have a baby for the first time. Pt was noted to be waving her arms while in acosta-chair. Pt is able to raise arms and bend them. Kandi Wong NP was notified. Classification Officer, La Nnea James was notified.
[2020-12-11] MEDS: SENNOSIDES 1 TABLET PO SCH (20:18)
[2020-12-11] MEDS: LATANOPROST OPHT DROP 2.5 ML BOTTLE EACHEYE SCH (20:19)
[2020-12-11 20:44] VITALS: BP 146/62
[2020-12-11] MEDS: CIPROFLOXACIN HCL 250 MG TABLET PO SCH (20:53)
[2020-12-11] MEDS: PSYLLIUM SEED PACKET PO SCH (20:56)
[2020-12-12 07:30] VITALS: BP 151/75
[2020-12-12] MEDS ORDERED: [UNRECOGNIZED DRUG - OTHER] PO SCH (09:00)
[2020-12-12] MEDS ORDERED: DOCUSATE SODIUM 100 MG CAPSULE PO SCH (09:00)
[2020-12-12] MEDS ORDERED: Medication Not On Formulary EA (Multivitamins W-Minerals (Multivitamin With Minerals) 1 PO SCH (09:00)
[2020-12-12] MEDS ORDERED: buPROPion 100 MG TABLET PO SCH (09:30)
[2020-12-12] MEDS: DOCUSATE SODIUM 250 MG CAPSULE PO SCH (09:48)
[2020-12-12] MEDS: ASCORBIC ACID 500 MG TABLET PO SCH ×2 (09:48→14:42)
[2020-12-12] MEDS: CALCIUM CARB/VITAMIN D 500MG-200UNITS TABLET PO SCH (09:48)
[2020-12-12] MEDS: MULTIVIT, IRON, MIN NO. 8, FA TABLET PO SCH ×2 (09:48→14:00)
[2020-12-12] MEDS: FERROUS SULFATE 325 MG TABEC PO SCH (09:48)
[2020-12-12] MEDS: CHOLECALCIFEROL 1,000 UNIT TABLET PO SCH ×2 (09:48→14:44)
[2020-12-12] MEDS: CIPROFLOXACIN HCL 250 MG TABLET PO SCH ×2 (09:49→20:08)
[2020-12-12] MEDS: HALOPERIDOL 5 MG TABLET PO SCH ×2 (11:00→17:15)
[2020-12-12] MEDS: PSYLLIUM SEED PACKET PO SCH ×2 (11:00→19:58)
[2020-12-12] MEDS: DIVALPROEX 500 MG TABLET.DR PO SCH ×2 (11:00→17:14)
[2020-12-12] MEDS: BENZTROPINE MESYLATE 0.5 MG TABLET PO SCH ×2 (11:00→17:15)
[2020-12-12] MEDS: buPROPion XL 150 MG TAB.SR.24H PO SCH (14:51)
[2020-12-12 15:33] VITALS: BP 154/76
--- NOTE | 2020-12-12 19:00 | NUR ---
RECEIVED PATIENT IN THE HALLWAY SITTING IN A ABHIJIT CHAIR. SHE IS NOTED A/O X 1. SHE IS HYPERVERBAL, TANGENTAL, LABILE. SHE IS OBSERVED LAUGHING AT TIMES, THEN CRYING INAPPROPRIATELY. SHE WAS NOTED CRYING AND STATING, "WERE IS MY POOR DOG, WHERE IS THE DOG". THEN AT ANOTHER TIME, SHE WAS NOTED LAUGHING. PATIENT IS A POOR HISTORIAN. SHE IS ABLE TO COMPLY WITH MEDICATION REGIMENT DIET AND CARE. V/S STABLE. SHE IS REASSURED FOR HER SAFETY. SAFETY AND FALL PRECAUTION ARE IN PLACE. PATIENT IS PROVIDED WITH PO FLUIDS AND SNACKS. WILL CONTINUE TO MONITOR.
[2020-12-12 20:00] VITALS: BP 133/54
[2020-12-12] MEDS: LATANOPROST OPHT DROP 2.5 ML BOTTLE EACHEYE SCH (20:08)
[2020-12-12] MEDS: SENNOSIDES 1 TABLET PO SCH (20:08)
[2020-12-12] MEDS: TEMAZEPAM 7.5 MG CAPSULE PO PRN (22:13)
[2020-12-13 07:30] VITALS: BP 115/75
[2020-12-13] MEDS: BENZTROPINE MESYLATE 0.5 MG TABLET PO SCH ×2 (08:53→17:18)
[2020-12-13] MEDS: FERROUS SULFATE 325 MG TABEC PO SCH (08:53)
[2020-12-13] MEDS: DIVALPROEX 500 MG TABLET.DR PO SCH ×2 (08:53→17:18)
[2020-12-13] MEDS: CIPROFLOXACIN HCL 250 MG TABLET PO SCH ×2 (08:53→20:26)
[2020-12-13] MEDS: DOCUSATE SODIUM 250 MG CAPSULE PO SCH (08:53)
[2020-12-13] MEDS: buPROPion XL 150 MG TAB.SR.24H PO SCH (08:54)
[2020-12-13] MEDS: CALCIUM CARB/VITAMIN D 500MG-200UNITS TABLET PO SCH (08:54)
[2020-12-13] MEDS: HALOPERIDOL 5 MG TABLET PO SCH ×2 (08:54→17:18)
[2020-12-13] MEDS: MULTIVIT, IRON, MIN NO. 8, FA TABLET PO SCH (08:55)
[2020-12-13] MEDS: CHOLECALCIFEROL 1,000 UNIT TABLET PO SCH (08:55)
[2020-12-13] MEDS: ASCORBIC ACID 500 MG TABLET PO SCH (08:56)
--- NOTE | 2020-12-13 09:00 | NUR ---
Pleasant, calm and compliant with care and taking of medications. Redirected when tangential.
[2020-12-13] MEDS: PSYLLIUM SEED PACKET PO SCH ×2 (11:31→20:26)
[2020-12-13] MEDS: LORAZEPAM 0.5 MG TABLET PO PRN (14:51)
--- NOTE | 2020-12-13 14:59 | NUR ---
Started screaming, angry while on the gerichair. Redirected. Ativan po given as ordered.
--- NOTE | 2020-12-13 15:36 | NUR ---
14-day hold signed by Dr. Snyder; faxed to court
[2020-12-13 16:00] VITALS: BP 118/80
--- NOTE | 2020-12-13 16:00 | NUR ---
Placed in the activity room, watching TV. Redirected. Calm
[2020-12-13 17:08] VITALS: BP 118/80
[2020-12-13 20:10] VITALS: BP 125/69
[2020-12-13] MEDS: SENNOSIDES 1 TABLET PO SCH (20:26)
[2020-12-13] MEDS: LATANOPROST OPHT DROP 2.5 ML BOTTLE EACHEYE SCH (20:26)
--- NOTE | 2020-12-14 04:56 | NUR ---
PATIENT AWAKE ABLE TO MAKE SOME NEEDS KNOWN,, NO COMPLAIN OF PAIN, COOPERATIVE WITH CARE AND MEDICATIONS. CONT TO MONITOR.
[2020-12-14 07:30] VITALS: BP 121/63
[2020-12-14] MEDS: BENZTROPINE MESYLATE 0.5 MG TABLET PO SCH ×2 (08:38→16:07)
[2020-12-14] MEDS: CALCIUM CARB/VITAMIN D 500MG-200UNITS TABLET PO SCH (08:38)
[2020-12-14] MEDS: DIVALPROEX 500 MG TABLET.DR PO SCH ×2 (08:38→16:07)
[2020-12-14] MEDS: FERROUS SULFATE 325 MG TABEC PO SCH (08:38)
[2020-12-14] MEDS: DOCUSATE SODIUM 250 MG CAPSULE PO SCH (08:38)
[2020-12-14] MEDS: ASCORBIC ACID 500 MG TABLET PO SCH (08:38)
[2020-12-14] MEDS: CHOLECALCIFEROL 1,000 UNIT TABLET PO SCH (08:38)
[2020-12-14] MEDS: MULTIVIT, IRON, MIN NO. 8, FA TABLET PO SCH (08:38)
[2020-12-14] MEDS: HALOPERIDOL 5 MG TABLET PO SCH ×2 (08:38→16:07)
[2020-12-14] MEDS: CIPROFLOXACIN HCL 250 MG TABLET PO SCH ×2 (08:39→20:22)
[2020-12-14] MEDS: buPROPion XL 150 MG TAB.SR.24H PO SCH (08:39)
--- NOTE | 2020-12-14 09:52 | NUR ---
Received patient sitting on the Nereida chair, pleasant and cooperative upon assessment, all due meds given per MD order and tolerated well. Patient able to eat her breakfast, denies of any pain at this time. Kept skin clean and dry. All needs attended in a timely manner. Will conitnue to monitor.
[2020-12-14] MEDS: LORAZEPAM 0.5 MG TABLET PO PRN ×2 (10:16→14:48)
[2020-12-14] MEDS: PSYLLIUM SEED PACKET PO SCH ×2 (10:50→18:48)
[2020-12-14 16:00] VITALS: BP 100/48
[2020-12-14 20:00] VITALS: BP 108/57
[2020-12-14] MEDS: LATANOPROST OPHT DROP 2.5 ML BOTTLE EACHEYE SCH (20:21)
[2020-12-14] MEDS: SENNOSIDES 1 TABLET PO SCH (20:22)
[2020-12-15 07:30] VITALS: BP 115/57
[2020-12-15] MEDS: CHOLECALCIFEROL 1,000 UNIT TABLET PO SCH ×2 (09:00→09:55)
[2020-12-15] MEDS: DIVALPROEX 500 MG TABLET.DR PO SCH ×2 (09:08→16:11)
[2020-12-15] MEDS: BENZTROPINE MESYLATE 0.5 MG TABLET PO SCH ×2 (09:08→16:11)
[2020-12-15] MEDS: CIPROFLOXACIN HCL 250 MG TABLET PO SCH ×2 (09:08→20:28)
[2020-12-15] MEDS: HALOPERIDOL 5 MG TABLET PO SCH ×2 (09:08→16:11)
[2020-12-15] MEDS: ASCORBIC ACID 500 MG TABLET PO SCH (09:44)
[2020-12-15] MEDS: FERROUS SULFATE 325 MG TABEC PO SCH (09:44)
[2020-12-15] MEDS: CALCIUM CARB/VITAMIN D 500MG-200UNITS TABLET PO SCH (09:44)
[2020-12-15] MEDS: MULTIVIT, IRON, MIN NO. 8, FA TABLET PO SCH (09:44)
[2020-12-15] MEDS: DOCUSATE SODIUM 250 MG CAPSULE PO SCH (09:46)
[2020-12-15] MEDS: buPROPion XL 150 MG TAB.SR.24H PO SCH (09:47)
--- NOTE | 2020-12-15 10:00 | NUR ---
received to care, up in acosta chair, talking to self. interacts with others, but doesnt always make sense. compliant with medications and staff direction. assited minimally with breakfast. attending group activities with recreational therapist. no distress noted. assisted to all needs.
[2020-12-15] MEDS: PSYLLIUM SEED PACKET PO SCH ×2 (12:03→18:14)
[2020-12-15 16:00] VITALS: BP 98/53
[2020-12-15] MEDS: LORAZEPAM 0.5 MG TABLET PO PRN (17:23)
[2020-12-15 20:00] VITALS: BP 116/61
[2020-12-15] MEDS: LATANOPROST OPHT DROP 2.5 ML BOTTLE EACHEYE SCH (20:28)
[2020-12-15] MEDS: SENNOSIDES 1 TABLET PO SCH (20:28)
[2020-12-15] MEDS: TEMAZEPAM 7.5 MG CAPSULE PO PRN (20:36)
--- NOTE | 2020-12-16 06:46 | NUR ---
GPS: Pt.slept for 4.30 last night. Remains confused,disoriented and disorganized. Easily agitated when being re-directed. Fall precautions observed. Reality re-orientation provided prn.
[2020-12-16 07:47] VITALS: BP 116/57
[2020-12-16] MEDS: DOCUSATE SODIUM 250 MG CAPSULE PO SCH (08:30)
[2020-12-16] MEDS: ASCORBIC ACID 500 MG TABLET PO SCH (08:30)
[2020-12-16] MEDS: CHOLECALCIFEROL 1,000 UNIT TABLET PO SCH (08:30)
[2020-12-16] MEDS: DIVALPROEX 500 MG TABLET.DR PO SCH ×2 (08:30→16:14)
[2020-12-16] MEDS: CALCIUM CARB/VITAMIN D 500MG-200UNITS TABLET PO SCH (08:30)
[2020-12-16] MEDS: FERROUS SULFATE 325 MG TABEC PO SCH (08:31)
[2020-12-16] MEDS: HALOPERIDOL 5 MG TABLET PO SCH ×2 (08:31→16:13)
[2020-12-16] MEDS: MULTIVIT, IRON, MIN NO. 8, FA TABLET PO SCH (08:31)
[2020-12-16] MEDS: BENZTROPINE MESYLATE 0.5 MG TABLET PO SCH ×2 (08:31→16:13)
[2020-12-16] MEDS: CIPROFLOXACIN HCL 250 MG TABLET PO SCH ×2 (08:32→20:10)
[2020-12-16] MEDS: buPROPion XL 150 MG TAB.SR.24H PO SCH (08:33)
[2020-12-16] MEDS: IBUPROFEN 400 MG TABLET PO PRN (08:33)
[2020-12-16] MEDS: PSYLLIUM SEED PACKET PO SCH ×2 (12:37→20:10)
[2020-12-16] MEDS: LORAZEPAM 0.5 MG TABLET PO PRN ×2 (15:07→20:10)
[2020-12-16 16:10] VITALS: BP 133/74
--- NOTE | 2020-12-16 18:06 | NUR ---
patient received Sitting on the acosta-chair, with fair appetite,confused and disoriented,denies any pain or discomfort at this time.poor insight ,will continue close monitoring.
[2020-12-16] MEDS: SENNOSIDES 1 TABLET PO SCH (20:10)
[2020-12-16] MEDS: LATANOPROST OPHT DROP 2.5 ML BOTTLE EACHEYE SCH (20:11)
[2020-12-16 20:21] VITALS: BP 116/74
[2020-12-16] MEDS: TEMAZEPAM 7.5 MG CAPSULE PO PRN (21:05)
--- NOTE | 2020-12-17 06:39 | NUR ---
GPS: Up on gerichair at this time near nurses station for safety. Slept 6 hrs last night. Remains confused,disoriented and disorganized. Less irritable/agitated when being re-directed. Will continue to monitor.
[2020-12-17 07:30] VITALS: BP 145/69
[2020-12-17] MEDS: CALCIUM CARB/VITAMIN D 500MG-200UNITS TABLET PO SCH (08:28)
[2020-12-17] MEDS: ASCORBIC ACID 500 MG TABLET PO SCH (08:28)
[2020-12-17] MEDS: DOCUSATE SODIUM 250 MG CAPSULE PO SCH (08:29)
[2020-12-17] MEDS: CHOLECALCIFEROL 1,000 UNIT TABLET PO SCH (08:29)
[2020-12-17] MEDS: BENZTROPINE MESYLATE 0.5 MG TABLET PO SCH ×2 (08:29→17:05)
[2020-12-17] MEDS: DIVALPROEX 500 MG TABLET.DR PO SCH ×2 (08:29→17:06)
[2020-12-17] MEDS: MULTIVIT, IRON, MIN NO. 8, FA TABLET PO SCH (08:29)
[2020-12-17] MEDS: HALOPERIDOL 5 MG TABLET PO SCH ×2 (08:29→17:05)
[2020-12-17] MEDS: FERROUS SULFATE 325 MG TABEC PO SCH (08:30)
[2020-12-17] MEDS: buPROPion XL 150 MG TAB.SR.24H PO SCH (08:32)
--- NOTE | 2020-12-17 10:03 | NUR ---
Court Hearing: Patients court hearing for 5250 was today and it was upheld for GD.
[2020-12-17] MEDS: PSYLLIUM SEED PACKET PO SCH ×2 (12:40→20:19)
[2020-12-17 15:27] VITALS: BP 108/64
[2020-12-17] MEDS: LATANOPROST OPHT DROP 2.5 ML BOTTLE EACHEYE SCH (20:19)
[2020-12-17] MEDS: SENNOSIDES 1 TABLET PO SCH (20:20)
[2020-12-17 20:35] VITALS: BP 120/84
[2020-12-17] MEDS: TEMAZEPAM 7.5 MG CAPSULE PO PRN (20:43)
[2020-12-18 07:30] VITALS: BP 134/67
[2020-12-18] MEDS: FERROUS SULFATE 325 MG TABEC PO SCH (08:53)
[2020-12-18] MEDS: HALOPERIDOL 5 MG TABLET PO SCH ×2 (08:54→17:11)
[2020-12-18] MEDS: DIVALPROEX 500 MG TABLET.DR PO SCH ×2 (08:54→17:10)
[2020-12-18] MEDS: BENZTROPINE MESYLATE 0.5 MG TABLET PO SCH ×2 (08:54→17:10)
[2020-12-18] MEDS: DOCUSATE SODIUM 250 MG CAPSULE PO SCH (08:54)
[2020-12-18] MEDS: ASCORBIC ACID 500 MG TABLET PO SCH (08:54)
[2020-12-18] MEDS: CALCIUM CARB/VITAMIN D 500MG-200UNITS TABLET PO SCH (08:54)
[2020-12-18] MEDS: CHOLECALCIFEROL 1,000 UNIT TABLET PO SCH (08:54)
[2020-12-18] MEDS: MULTIVIT, IRON, MIN NO. 8, FA TABLET PO SCH (08:54)
[2020-12-18] MEDS: buPROPion XL 150 MG TAB.SR.24H PO SCH (08:55)
--- NOTE | 2020-12-18 09:00 | NUR ---
Received report from solar energy system installer helper RN. pt was awake in room, crying and rocking back and forth. pt complies with medication and care. She stopped crying after receiving her AM medications. Will continue to monitor.
[2020-12-18] MEDS: PSYLLIUM SEED PACKET PO SCH ×2 (11:00→19:32)
[2020-12-18 16:00] VITALS: BP 115/49
--- NOTE | 2020-12-18 16:32 | NUR ---
GPS: pt is in activity room says she's luzma to in an electric chair. provided low stimuli environment. pt calm down and is now cooperative.
[2020-12-18] MEDS: LORAZEPAM 0.5 MG TABLET PO PRN ×2 (19:32→23:35)
--- NOTE | 2020-12-18 20:00 | NUR ---
RECEIVED PATIENT IN THE HALLWAY SITTING IN A RECLINING CHAIR NEAR THE NURSING STATION. PATIENT NOTED A/O X 1. SHE IS NOTED AGITATED, ANXIOUS, HYPERVERBAL, TANGENTAL, DISORGANIZED SPEECH. SHE IS NOTED YELLING AT TIMES, CRYING AND LAUGHING INAPPROPRIATELY. PATIENT WAS GIVEN ATIVAN 0.5 MG PO PRN. SHE WAS REASSURED FOR HER SAFETY. SAFETY AND FALL PRECAUTION IN PLACE. SHE WAS GIVEN PO FLUIDS AND SNACKS. V/S STABLE. SAFETY AND FALL PRECAUTION IN PLACE. WILL CONTINUE TO MONITOR.
[2020-12-18] MEDS: SENNOSIDES 1 TABLET PO SCH (20:13)
[2020-12-18] MEDS: LATANOPROST OPHT DROP 2.5 ML BOTTLE EACHEYE SCH (20:13)
[2020-12-18] MEDS: TEMAZEPAM 7.5 MG CAPSULE PO PRN (21:43)
[2020-12-18 22:05] VITALS: BP 120/70
--- NOTE | 2020-12-18 23:40 | NUR ---
PATIENT NOTED RESTLESS, YELLING A TIMES, UNABLE TO FALL ASLEEP. TEMAZEPAM 7.5 MG PO PRN WAS GIVEN ABOUT 75 MIN AGO WITH NO EFFECT. ATIVAN 0.5 MG PO PRN WAS GIVEN. WILL CONTINUE TO MONITOR.
--- NOTE | 2020-12-19 07:23 | NUR ---
patient slept for approx 5.15 hrs through the night. she was noted less irritable. will continue to monitor.
[2020-12-19 07:30] VITALS: BP 125/59
[2020-12-19] MEDS: buPROPion XL 150 MG TAB.SR.24H PO SCH (09:02)
[2020-12-19] MEDS: BENZTROPINE MESYLATE 0.5 MG TABLET PO SCH ×2 (09:03→16:42)
[2020-12-19] MEDS: FERROUS SULFATE 325 MG TABEC PO SCH (09:03)
[2020-12-19] MEDS: DOCUSATE SODIUM 250 MG CAPSULE PO SCH (09:03)
[2020-12-19] MEDS: HALOPERIDOL 5 MG TABLET PO SCH ×2 (09:03→16:42)
[2020-12-19] MEDS: MULTIVIT, IRON, MIN NO. 8, FA TABLET PO SCH (09:03)
[2020-12-19] MEDS: DIVALPROEX 500 MG TABLET.DR PO SCH ×2 (09:03→16:42)
[2020-12-19] MEDS: ASCORBIC ACID 500 MG TABLET PO SCH (09:03)
[2020-12-19] MEDS: CHOLECALCIFEROL 1,000 UNIT TABLET PO SCH (09:03)
[2020-12-19] MEDS: CALCIUM CARB/VITAMIN D 500MG-200UNITS TABLET PO SCH (09:03)
[2020-12-19] MEDS: PSYLLIUM SEED PACKET PO SCH ×2 (12:57→19:00)
[2020-12-19] MEDS: LORAZEPAM 0.5 MG TABLET PO PRN (14:26)
--- NOTE | 2020-12-19 14:31 | NUR ---
GPS: Pt acting aggressive, banging the table and screaming. pt asked to calm down and redirected but still increasing agitation. pt given ativan 0.5mg tablet. will monitor pt.
[2020-12-19 17:11] VITALS: BP 129/69
[2020-12-19 19:56] VITALS: BP 124/60
--- NOTE | 2020-12-19 20:00 | NUR ---
RECEIVED PATIENT IN HER ROOM IN BED ASLEEP, BUT SHE IS EASILY AROUSABLE. PATIENT IS A POOR HISTORIAN, V/S STABLE. SAFETY AND FALL PRECAUTION IN PLACE. PO FLUIDS AND SNACKS ARE PROVIDED. WILL CONTINUE TO MONITOR.
[2020-12-19] MEDS: LATANOPROST OPHT DROP 2.5 ML BOTTLE EACHEYE SCH (20:02)
[2020-12-19] MEDS: SENNOSIDES 1 TABLET PO SCH (20:02)
[2020-12-20] MEDS: TEMAZEPAM 7.5 MG CAPSULE PO PRN (02:14)
--- NOTE | 2020-12-20 02:15 | NUR ---
PATENT WOKE UP AND STARTED YELLING. SHE WAS HELPED TO THE BATHROOM AND NEEDS WERE MET. PATIENT CONTINUE RESTLESS AND SHE WAS OBSERVED CRYING AT TIMES. TEMAZEPAM 7.5 MG PO PRN WAS GIVEN. WILL CONTINUE TO MONITOR,
[2020-12-20] MEDS: IBUPROFEN 400 MG TABLET PO PRN ×2 (03:46→21:29)
--- NOTE | 2020-12-20 06:33 | NUR ---
PATIENT SLEPT FOR APPROX 7.30 MIN THROUGH THE NIGHT. SHE IS NOTED WITH LABILE MOOD. SHE CONTINUE COMPLIANT WITH MEDICATION REGIMENT. AT THIS TIME.
[2020-12-20 07:30] VITALS: BP 118/66
[2020-12-20] MEDS: MULTIVIT, IRON, MIN NO. 8, FA TABLET PO SCH (09:02)
[2020-12-20] MEDS: DOCUSATE SODIUM 250 MG CAPSULE PO SCH (09:02)
[2020-12-20] MEDS: HALOPERIDOL 5 MG TABLET PO SCH ×2 (09:02→17:32)
[2020-12-20] MEDS: CHOLECALCIFEROL 1,000 UNIT TABLET PO SCH (09:03)
[2020-12-20] MEDS: BENZTROPINE MESYLATE 0.5 MG TABLET PO SCH ×2 (09:03→17:32)
[2020-12-20] MEDS: ASCORBIC ACID 500 MG TABLET PO SCH (09:03)
[2020-12-20] MEDS: CALCIUM CARB/VITAMIN D 500MG-200UNITS TABLET PO SCH (09:03)
[2020-12-20] MEDS: FERROUS SULFATE 325 MG TABEC PO SCH (09:03)
[2020-12-20] MEDS: DIVALPROEX 500 MG TABLET.DR PO SCH ×2 (09:04→17:32)
[2020-12-20] MEDS: buPROPion XL 150 MG TAB.SR.24H PO SCH (09:05)
--- NOTE | 2020-12-20 10:48 | NUR ---
GPS: pt alert but confused. talking to herself. pt cooperative and take medications easily. no agitation episode at this time.
[2020-12-20] MEDS: PSYLLIUM SEED PACKET PO SCH ×2 (11:00→21:29)
[2020-12-20 16:36] VITALS: BP 122/71
[2020-12-20 20:09] VITALS: BP 131/62
[2020-12-20] MEDS: SENNOSIDES 1 TABLET PO SCH (21:27)
[2020-12-20] MEDS: LATANOPROST OPHT DROP 2.5 ML BOTTLE EACHEYE SCH (21:27)
[2020-12-21 08:41] VITALS: BP 144/69
[2020-12-21] MEDS: MULTIVIT, IRON, MIN NO. 8, FA TABLET PO SCH (08:42)
[2020-12-21] MEDS: buPROPion XL 150 MG TAB.SR.24H PO SCH (08:42)
[2020-12-21] MEDS: ASCORBIC ACID 500 MG TABLET PO SCH (08:43)
[2020-12-21] MEDS: FERROUS SULFATE 325 MG TABEC PO SCH (08:45)
[2020-12-21] MEDS: DIVALPROEX 500 MG TABLET.DR PO SCH ×2 (08:45→16:44)
[2020-12-21] MEDS: HALOPERIDOL 5 MG TABLET PO SCH ×2 (08:45→16:44)
[2020-12-21] MEDS: CHOLECALCIFEROL 1,000 UNIT TABLET PO SCH (08:45)
[2020-12-21] MEDS: CALCIUM CARB/VITAMIN D 500MG-200UNITS TABLET PO SCH (08:45)
[2020-12-21] MEDS: DOCUSATE SODIUM 250 MG CAPSULE PO SCH (08:45)
[2020-12-21] MEDS: BENZTROPINE MESYLATE 0.5 MG TABLET PO SCH ×2 (08:45→16:45)
[2020-12-21] MEDS: PSYLLIUM SEED PACKET PO SCH ×2 (11:14→17:51)
[2020-12-21 16:50] VITALS: BP 154/79
[2020-12-21] MEDS: LORAZEPAM 0.5 MG TABLET PO PRN (19:39)
[2020-12-21] MEDS: IBUPROFEN 400 MG TABLET PO PRN (19:57)
[2020-12-21 20:00] VITALS: BP 146/72
[2020-12-21] MEDS: SENNOSIDES 1 TABLET PO SCH (20:02)
[2020-12-21] MEDS: LATANOPROST OPHT DROP 2.5 ML BOTTLE EACHEYE SCH (20:02)
--- NOTE | 2020-12-22 06:11 | NUR ---
Received Pt in bed screaming, crying, and shaking her walker at the ceiling. Pt yelled that she wanted "to walk down the hooks". When this publicity writer attempted to assist Pt out of bed and help her walk, Pt was unable to maintain any semblance of a steady gait. Pt is labile and verbally abusive toward staff. Pt is is over-reactive to stressors, impulsive, and demonstrates poor judgment. Pt was placed back in bed and administered Ativan 0.5mg at 1939 with moderate effect. Pt c/o back pain, Motrin 400mg administered with good effect. All ADLs attended to. VS stable.
[2020-12-22] MEDS ORDERED: Z GUARD REMEDY PASTE 57 GM TUBE TOP PRN (07:15)
[2020-12-22] MEDS: ASCORBIC ACID 500 MG TABLET PO SCH (08:12)
[2020-12-22] MEDS: HALOPERIDOL 5 MG TABLET PO SCH ×2 (08:12→16:03)
[2020-12-22] MEDS: MULTIVIT, IRON, MIN NO. 8, FA TABLET PO SCH (08:13)
[2020-12-22] MEDS: CHOLECALCIFEROL 1,000 UNIT TABLET PO SCH (08:13)
[2020-12-22] MEDS: DIVALPROEX 500 MG TABLET.DR PO SCH ×2 (08:13→16:03)
[2020-12-22] MEDS: buPROPion XL 150 MG TAB.SR.24H PO SCH (08:13)
[2020-12-22] MEDS: FERROUS SULFATE 325 MG TABEC PO SCH (08:13)
[2020-12-22] MEDS: BENZTROPINE MESYLATE 0.5 MG TABLET PO SCH ×2 (08:13→16:03)
[2020-12-22] MEDS: CALCIUM CARB/VITAMIN D 500MG-200UNITS TABLET PO SCH (08:13)
[2020-12-22] MEDS: DOCUSATE SODIUM 250 MG CAPSULE PO SCH (08:13)
[2020-12-22 08:25] VITALS: BP 129/77
[2020-12-22] MEDS: PSYLLIUM SEED PACKET PO SCH ×2 (12:22→19:26)
[2020-12-22] MEDS: LORAZEPAM 0.5 MG TABLET PO PRN ×2 (14:56→19:26)
[2020-12-22 15:26] VITALS: BP 95/50
[2020-12-22 20:10] VITALS: BP 116/67
[2020-12-22] MEDS: SENNOSIDES 1 TABLET PO SCH (20:16)
[2020-12-22] MEDS: LATANOPROST OPHT DROP 2.5 ML BOTTLE EACHEYE SCH (20:18)
[2020-12-22] MEDS: TEMAZEPAM 7.5 MG CAPSULE PO PRN ×2 (21:04→21:08)
[2020-12-23] MEDS: buPROPion XL 150 MG TAB.SR.24H PO SCH (08:03)
[2020-12-23 08:04] VITALS: BP 128/70
[2020-12-23] MEDS: CALCIUM CARB/VITAMIN D 500MG-200UNITS TABLET PO SCH (08:04)
[2020-12-23] MEDS: LORAZEPAM 0.5 MG TABLET PO PRN ×2 (08:04→18:24)
[2020-12-23] MEDS: MULTIVIT, IRON, MIN NO. 8, FA TABLET PO SCH (08:05)
[2020-12-23] MEDS: BENZTROPINE MESYLATE 0.5 MG TABLET PO SCH ×2 (08:05→17:29)
[2020-12-23] MEDS: FERROUS SULFATE 325 MG TABEC PO SCH (08:05)
[2020-12-23] MEDS: ASCORBIC ACID 500 MG TABLET PO SCH (08:05)
[2020-12-23] MEDS: DOCUSATE SODIUM 250 MG CAPSULE PO SCH (08:05)
[2020-12-23] MEDS: HALOPERIDOL 5 MG TABLET PO SCH ×2 (08:05→17:31)
[2020-12-23] MEDS: DIVALPROEX 500 MG TABLET.DR PO SCH ×2 (08:06→17:28)
[2020-12-23] MEDS: CHOLECALCIFEROL 1,000 UNIT TABLET PO SCH (08:06)
--- NOTE | 2020-12-23 09:00 | NUR ---
Received report from school services officer RN. a/o x 2/3. pt is sleeping. ambulatory with PT only. stable, calm, will continue to monitor. has a wound consult pending for noted redness in groin folds.
[2020-12-23] MEDS: PSYLLIUM SEED PACKET PO SCH ×2 (11:00→18:16)
--- NOTE | 2020-12-23 11:25 | NUR ---
WOUND CARE CONSULT: PT PRESENTS WITH ABRASION TO LEFT ELBOW AND RASH TO BREASTFOLDS AND ABDOMINAL/GROIN FOLDS. PT NOTED TO BE INCONTINENT. RECOMMENDATIONS MADE FOR WOUND CARE AND SKIN PROTECTION. DISCUSSED WITH NURSING STAFF. MD IN AGREEMENT WITH PLAN OF CARE.
[2020-12-23] MEDS: CLOTRIMAZOLE 1% CREAM 30 GM TUBE TOP SCH ×2 (13:06→18:16)
[2020-12-23 16:17] VITALS: BP 103/61
--- NOTE | 2020-12-23 16:31 | NUR ---
pt is stable and cooperative. applied ordered creams in affected areas (groin folds, and under breast) for comfort and healing.
[2020-12-23 20:00] VITALS: BP 131/55
[2020-12-23] MEDS: LATANOPROST OPHT DROP 2.5 ML BOTTLE EACHEYE SCH (20:02)
[2020-12-23] MEDS: OLANZAPINE ZYDIS 5 MG TAB.RAPDIS PO SCH (20:02)
[2020-12-23] MEDS: SENNOSIDES 1 TABLET PO SCH (20:02)
[2020-12-24 07:30] VITALS: BP 123/66
[2020-12-24] MEDS: DOCUSATE SODIUM 250 MG CAPSULE PO SCH (08:24)
[2020-12-24] MEDS: BENZTROPINE MESYLATE 0.5 MG TABLET PO SCH ×2 (08:24→16:16)
[2020-12-24] MEDS: ASCORBIC ACID 500 MG TABLET PO SCH (08:24)
[2020-12-24] MEDS: FERROUS SULFATE 325 MG TABEC PO SCH (08:24)
[2020-12-24] MEDS: MULTIVIT, IRON, MIN NO. 8, FA TABLET PO SCH (08:24)
[2020-12-24] MEDS: CALCIUM CARB/VITAMIN D 500MG-200UNITS TABLET PO SCH (08:25)
[2020-12-24] MEDS: DIVALPROEX 500 MG TABLET.DR PO SCH ×3 (08:25→17:42)
[2020-12-24] MEDS: CHOLECALCIFEROL 1,000 UNIT TABLET PO SCH (08:25)
[2020-12-24] MEDS: HALOPERIDOL 5 MG TABLET PO SCH ×2 (08:25→16:16)
[2020-12-24] MEDS: buPROPion XL 150 MG TAB.SR.24H PO SCH (09:01)
[2020-12-24] MEDS: CLOTRIMAZOLE 1% CREAM 30 GM TUBE TOP SCH ×2 (09:01→16:17)
--- NOTE | 2020-12-24 10:00 | NUR ---
patient is out of control, banging on the side table. screaming loud. ativan 0.5 mg po given.
[2020-12-24] MEDS: LORAZEPAM 0.5 MG TABLET PO PRN ×2 (10:01→13:58)
[2020-12-24] MEDS: PSYLLIUM SEED PACKET PO SCH ×2 (10:48→18:15)
--- NOTE | 2020-12-24 11:00 | NUR ---
patient is quiet at this time. prn effective.
--- NOTE | 2020-12-24 14:00 | NUR ---
patient is screaming loud. sitting up in gri chair. ativan 0.5 mg po given for agitation.
--- NOTE | 2020-12-24 15:00 | NUR ---
patient is calm now. prn effective for agitation.
[2020-12-24 15:10] VITALS: BP 111/67
--- NOTE | 2020-12-24 18:28 | NUR ---
Patient occ scream very loud . prn given and effective. assisted with adl's. compliant with meds and care. continue plan of care.
[2020-12-24 20:01] VITALS: BP 146/70
[2020-12-24] MEDS: LATANOPROST OPHT DROP 2.5 ML BOTTLE EACHEYE SCH (20:02)
[2020-12-24] MEDS: OLANZAPINE ZYDIS 5 MG TAB.RAPDIS PO SCH (20:02)
[2020-12-24] MEDS: SENNOSIDES 1 TABLET PO SCH (20:02)
[2020-12-24] MEDS: IBUPROFEN 400 MG TABLET PO PRN (22:22)
[2020-12-24] MEDS: TEMAZEPAM 7.5 MG CAPSULE PO PRN (22:22)
--- NOTE | 2020-12-24 23:15 | NUR ---
Received patient in the hallway. she is noted A/O x 2. she is noted hyperverbal, mood is labile, affect is blunted. she required redirection and reality orientation. she needs assistance with ADLs. she is unable to perform complex tasks. patient is reassured for her safety. safety and fall precaution are in place. she is given PO fluids and snacks. she is reassured for her safety, will continue to monitor,
--- NOTE | 2020-12-25 06:50 | NUR ---
PATIENT SLEPT FOR APPROX 5.30 HRS THROUGH THE NIGHT. SHE IS NOTED CALM, BUT SHE CRIES AT TIMES. SHE IS ABLE TO COMPLY WITH CARE. WILL CONTINUE TO MONITOR.
[2020-12-25 07:30] VITALS: BP 140/78
--- NOTE | 2020-12-25 07:30 | NUR ---
Received patient awake, alert/orientedx1. She is in the hallway. Requires reorientation. V/S stable. safety and fall precaution in place. Denies SI. will continue to monitor.
[2020-12-25] MEDS: DIVALPROEX 500 MG TABLET.DR PO SCH ×3 (08:38→16:37)
[2020-12-25] MEDS: buPROPion XL 150 MG TAB.SR.24H PO SCH (08:39)
[2020-12-25] MEDS: ASCORBIC ACID 500 MG TABLET PO SCH (08:40)
[2020-12-25] MEDS: HALOPERIDOL 5 MG TABLET PO SCH ×2 (08:40→16:37)
[2020-12-25] MEDS: CALCIUM CARB/VITAMIN D 500MG-200UNITS TABLET PO SCH (08:40)
[2020-12-25] MEDS: CHOLECALCIFEROL 1,000 UNIT TABLET PO SCH (08:41)
[2020-12-25] MEDS: DOCUSATE SODIUM 250 MG CAPSULE PO SCH (08:41)
[2020-12-25] MEDS: CLOTRIMAZOLE 1% CREAM 30 GM TUBE TOP SCH ×2 (08:41→16:38)
[2020-12-25] MEDS: MULTIVIT, IRON, MIN NO. 8, FA TABLET PO SCH (08:41)
[2020-12-25] MEDS: FERROUS SULFATE 325 MG TABEC PO SCH (08:41)
[2020-12-25] MEDS: BENZTROPINE MESYLATE 0.5 MG TABLET PO SCH ×2 (08:41→16:37)
[2020-12-25 08:53] LABS: CREATININE 0.7 mg/dL (0.6-1.3); POTASSIUM 4.2 mmol/L (3.5-5.1)
[2020-12-25] MEDS: PSYLLIUM SEED PACKET PO SCH ×2 (11:13→18:01)
--- NOTE | 2020-12-25 14:34 | NUR ---
MD order COVID test, done and sent to the lab.
[2020-12-25 16:00] VITALS: BP 139/76
--- NOTE | 2020-12-25 18:27 | NUR ---
Patient was noted with BM during the shift. She has episode of screaming from her chair. remained calm otherwise. Denies SI. No distress identified during the shift. Kept safe and frequent checks done. All due med given as ordered. Will endorse to the next shift for continuity of care
[2020-12-25] MEDS: LATANOPROST OPHT DROP 2.5 ML BOTTLE EACHEYE SCH (20:57)
[2020-12-25] MEDS: SENNOSIDES 1 TABLET PO SCH (20:57)
[2020-12-25] MEDS: OLANZAPINE ZYDIS 5 MG TAB.RAPDIS PO SCH (20:57)
[2020-12-25 21:09] VITALS: BP 106/64
[2020-12-26 07:30] VITALS: BP 114/76
--- NOTE | 2020-12-26 07:30 | NUR ---
Patient is alert/oriented, denies pain, denies SI. Reoriented to the room, encouraged activity. Will continue to monitor fort safety.
[2020-12-26] MEDS: FERROUS SULFATE 325 MG TABEC PO SCH (08:30)
[2020-12-26] MEDS: DIVALPROEX 500 MG TABLET.DR PO SCH ×2 (08:30→13:04)
[2020-12-26] MEDS: DOCUSATE SODIUM 250 MG CAPSULE PO SCH (08:30)
[2020-12-26] MEDS: CHOLECALCIFEROL 1,000 UNIT TABLET PO SCH (08:30)
[2020-12-26] MEDS: ASCORBIC ACID 500 MG TABLET PO SCH (08:31)
[2020-12-26] MEDS: BENZTROPINE MESYLATE 0.5 MG TABLET PO SCH (08:31)
[2020-12-26] MEDS: buPROPion XL 150 MG TAB.SR.24H PO SCH (08:31)
[2020-12-26] MEDS: CALCIUM CARB/VITAMIN D 500MG-200UNITS TABLET PO SCH (08:31)
--- NOTE | 2020-12-26 08:31 | NUR ---
SW Discharge Note: Patient will be discharged to a [facility] facility to [facility] [place]Note 2[facility] [id number] [place] [id number]; ([phone]) via ambulance transportation at 12PM. Chemical Strength Tester spoke with Swathi, Ems Manager at [facility] [place]Note 2]; ([phone]), who stated patient will be accepted at facility today. Patient is alert and oriented x2 and is not able to plan for self-care at this time but is willing to accept care provided for her at the facility. Patient denies any suicidal or homicidal ideations. Patient is aware and agreeable with discharge plans. Patients brother Sreekanth ([phone]) is aware of patients discharge plan. Patient will continue to follow-up with her Psychiatrist Dr. Mclaughlin and Trench Digger Helper Dr. Brandt. Patient presents with euthymic mood and congruent affect.
[2020-12-26] MEDS: CLOTRIMAZOLE 1% CREAM 30 GM TUBE TOP SCH (08:32)
[2020-12-26] MEDS: HALOPERIDOL 5 MG TABLET PO SCH (08:34)
[2020-12-26] MEDS: MULTIVIT, IRON, MIN NO. 8, FA TABLET PO SCH (08:35)
[2020-12-26] MEDS: PSYLLIUM SEED PACKET PO SCH (11:59)
--- NOTE | 2020-12-26 13:15 | NUR ---
Discharged patient to locked penitentiary facility to [facility] [address] [place] [id number]; ([phone]). Patient was picked up by [facility] via gurney with [employer]. Patient's belongings and valuables inventoried and returned to the patient. Patient's discharge packet includes dc prescription, continuing orders, and plan of care given to ELLYN Larson. report called to IAN Pa of [facility]. Patient escorted off unit in stable condition with no adverse event by nursing staff.
== END 2020-12-26 13:15 | DRG 885 ==
LOC: ER 18:08 → GPS 23:03
PROVIDERS: ADMIT Psychiatry & Neurology Psychiatry; ATTEND Registered Nurse
DX: F25.9 Schizoaffective disorder, unspecified (principal); N39.0 Urinary tract infection, site not specified; G20 Parkinson's disease; F02.80 Dementia in other diseases classified elsewhere, unspecified severity, without behavioral disturbance, psychotic disturbance, mood disturbance, and anxiety; H40.9 Unspecified glaucoma; E66.01 Morbid (severe) obesity due to excess calories; F41.9 Anxiety disorder, unspecified; J44.9 Chronic obstructive pulmonary disease, unspecified; R13.10 Dysphagia, unspecified; M19.90 Unspecified osteoarthritis, unspecified site; Z68.36 Body mass index [BMI] 36.0-36.9, adult; F29 Unspecified psychosis not due to a substance or known physiological condition; Z20.822 Contact with and (suspected) exposure to COVID-19
CPT/HCPCS: 36415; 70030-TC; 70450; 71045; 80164; 84443; 85025; 93005; 97161; A4663; G0480

== ENCOUNTER 2024-09-07 11:49 | Inpatient (IN) | payer MEDICARE, OTHER ==
[~2024-09-07] VITALS: Ht 172.7 cm; Wt 95.3 kg
[~2024-09-07 11:49] MED LIST changes: +ASCO500T10 PO; +BISA10SU61 RC; +CIPR-263 PO; +CRAN500T3 PO; +DOCU100C36 PO; +LATA2.5D2 EACHEYE; +MULT-213 PO; +PSYL822P20 PO; +QUER1POW PO; +VITAMIN D PO
[2024-09-07] MEDS: IV NS 1000 ML 1,000 ML IV PRN (12:03)
[2024-09-07 12:23] LABS: BASOPHILS % (AUTO) 0.6 % (0.0-2.0); CALCIUM 8.1 mg/dL (8.5-10.1); CARBON DIOXIDE 27 mmol/L (21-32); CHLORIDE 99 mmol/L (98-107); CREATININE 0.6 mg/dL (0.6-1.3); EOSINOPHILS # (AUTO) 0.3 K/uL (0.0-0.7); EOSINOPHILS % (AUTO) 5.9 % (0.0-7.0); GLUCOSE 97 mg/dL (74-106); HEMATOCRIT 34.8 % (31.2-41.9); HEMOGLOBIN 11.7 g/dL (10.9-14.3); LYMPHOCYTES # (AUTO) 1.6 K/uL (0.8-4.8); MEAN CORPUSCULAR HEMOGLOBIN 27.1 uug (24.7-32.8); MEAN CORPUSCULAR HGB CONC 34 g/dL (32.3-35.6); MEAN CORPUSCULAR VOLUME 80.5 fL (75.5-95.3); MONOCYTES # (AUTO) 0.6 K/uL (0.1-1.30); MONOCYTES % (AUTO) 13.8 % (0.0-11.0); NEUTROPHILS # (AUTO) 1.9 K/uL (1.8-8.9); NEUTROPHILS % (AUTO) 42.7 % (38.5-71.5); PLATELET COUNT (AUTO) 182 K/uL (179-408); POTASSIUM 4.4 mmol/L (3.5-5.1); RED BLOOD CELL COUNT(AUTO) 4.32 MIL/uL (3.63-4.92); RED CELL DISTRIBUTION WIDTH 15.1 % (12.3-17.7); SODIUM SERUM 134 mmol/L (136-145); UREA NITROGEN, BLOOD 6 mg/dL (7-18); WHITE BLOOD COUNT (AUTO) 4.4 K/uL (3.8-11.8)
[2024-09-07 12:24] LABS: DIFFERENTIAL COMMENT 1
[2024-09-07] MEDS ORDERED: APIX5TAB PO (12:25)
[2024-09-07] MEDS ORDERED: POLY250017 PO (12:25)
[2024-09-07] MEDS ORDERED: [UNRECOGNIZED DRUG - OTHER] PO (12:25)
[2024-09-07] MEDS ORDERED: DIVA125C5 PO (12:25)
[2024-09-07] MEDS ORDERED: NYST15PO4 TP (12:25)
[2024-09-07] MEDS ORDERED: DEXT30DR6 EACHEYE (12:25)
[2024-09-07] MEDS ORDERED: METO25TA6 PO (12:25)
[2024-09-07] MEDS ORDERED: SODI100010 PO (12:25)
[2024-09-07] MEDS ORDERED: RISP2TAB85 PO (12:25)
[2024-09-07] MEDS ORDERED: PANT40TA49 PO (12:25)
[2024-09-07] MEDS ORDERED: TAMS-3 PO (12:25)
[2024-09-07 12:36] LABS: ALANINE AMINOTRANSFERASE 9 U/L (14-59); ALBUMIN 2.3 g/dL (3.4-5.0); ALKALINE PHOSPHATASE 71 U/L (50-136); ASPARTATE AMINOTRANSFERASE 10 U/L (15-37); BILIRUBIN,DIRECT 0.1 mg/dL (0.0-0.2); BILIRUBIN,TOTAL 0.2 mg/dL (0.2-1.0); NT-PRO BNP 3467 pg/mL (0-125); TOTAL PROTEIN, SERUM 6.2 g/dL (6.4-8.2)
[2024-09-07] MEDS ORDERED: levoFLOXacin 500 MG/D5W 100 ML ONE (12:49)
[2024-09-07] MEDS: levoFLOXacin 500 MG/D5W 100ML PIGGYBACK IV ONE (12:50)
[2024-09-07] MEDS ORDERED: MAGNESIUM HYDROXIDE 30 ML LIQUID UDC PO PRN (14:15)
[2024-09-07] MEDS ORDERED: ONDANSETRON 4 MG/2 ML VIAL IV PRN (14:15)
[2024-09-07] MEDS ORDERED: POLY15DR31 EACHEYE (15:33)
[2024-09-07] MEDS ORDERED: SIME120L PO (15:45)
[2024-09-07] MEDS ORDERED: CHOL10005 PO (15:57)
[2024-09-07] MEDS: VANCOMYCIN IV 1,000 MG in IV DEXTROSE 5% 250 ML IV SCH (17:10)
[2024-09-07] MEDS ORDERED: REMEDY ESSENTIAL ZINC PASTE 113 GM TOP PRN (19:00)
[2024-09-07 20:30] VITALS: BP 109/76; TEMP 97.8; O2SAT 100
[2024-09-07] MEDS: LATANOPROST OPHT DROP 2.5 ML BOTTLE EACHEYE SCH (20:48)
[2024-09-07] MEDS: TAMSULOSIN HCL 0.4 MG CAP.SR.24H PO SCH (20:48)
[2024-09-07] MEDS: FUROSEMIDE 40 MG/4 ML VIAL IV SCH (20:50)
[2024-09-07] MEDS ORDERED: ENOXAPARIN SODIUM 40 MG/0.4 ML DISP.SYRIN SQ SCH (21:00)
[2024-09-08 04:27] VITALS: BP 117/53; TEMP 98; O2SAT 100
[2024-09-08 06:54] LABS: BASOPHILS % (AUTO) 0.5 % (0.0-2.0); EOSINOPHILS # (AUTO) 0.3 K/uL (0.0-0.7); EOSINOPHILS % (AUTO) 6.5 % (0.0-7.0); HEMATOCRIT 35.1 % (31.2-41.9); HEMOGLOBIN 11.8 g/dL (10.9-14.3); LYMPHOCYTES # (AUTO) 1.6 K/uL (0.8-4.8); LYMPHOCYTES % (AUTO) 33.4 % (20.5-51.5); MEAN CORPUSCULAR HEMOGLOBIN 27.5 uug (24.7-32.8); MEAN CORPUSCULAR HGB CONC 34 g/dL (32.3-35.6); MEAN CORPUSCULAR VOLUME 82.1 fL (75.5-95.3); MONOCYTES # (AUTO) 0.8 K/uL (0.1-1.30); MONOCYTES % (AUTO) 15.6 % (0.0-11.0); NEUTROPHILS # (AUTO) 2.1 K/uL (1.8-8.9); PLATELET COUNT (AUTO) 199 K/uL (179-408); RED BLOOD CELL COUNT(AUTO) 4.28 MIL/uL (3.63-4.92); RED CELL DISTRIBUTION WIDTH 15.1 % (12.3-17.7); WHITE BLOOD COUNT (AUTO) 4.8 K/uL (3.8-11.8)
[2024-09-08 07:03] LABS: DIFFERENTIAL COMMENT 1
[2024-09-08 07:08] LABS: CALCIUM 8.2 mg/dL (8.5-10.1); CARBON DIOXIDE 26 mmol/L (21-32); CHLORIDE 98 mmol/L (98-107); CREATININE 0.7 mg/dL (0.6-1.3); GLUCOSE 109 mg/dL (74-106); MAGNESIUM 1.7 mg/dL (1.8-2.4); PHOSPHOROUS 3.4 mg/dL (2.5-4.9); POTASSIUM 3.9 mmol/L (3.5-5.1); SODIUM SERUM 132 mmol/L (136-145); UREA NITROGEN, BLOOD 9 mg/dL (7-18)
[2024-09-08 07:15] LABS: LYMPHOCYTES % (MANUAL) 33 % (20-40); MONOCYTES % (MANUAL) 16 % (2-10); NEUTROPHILS % (MANUAL) 44 % (42-75)
[2024-09-08 07:16] LABS: ANISOCYTOSIS 1+; EOSINOPHILS % (MANUAL) 7 % (0-8); PLATELET ESTIMATE ADEQUATE
[2024-09-08] MEDS: METOPROLOL TARTRATE 25 MG TABLET PO SCH (09:00)
[2024-09-08] MEDS: PANTOPRAZOLE SODIUM 40 MG TABLET.DR PO SCH (09:57)
[2024-09-08] MEDS: DIVALPROEX SPRINKLE 125 MG CAP.SPRINK PO SCH (09:57)
[2024-09-08] MEDS: DOCUSATE SODIUM 100 MG CAPSULE PO SCH (09:58)
[2024-09-08] MEDS: risperiDONE 2 MG TABLET PO SCH (09:58)
[2024-09-08] MEDS: APIXABAN 5 MG TABLET PO SCH (10:09)
[2024-09-08] MEDS: MAGNESIUM OXIDE 400 MG TABLET PO ONE (10:13)
[2024-09-08] MEDS: SENNOSIDES 1 TABLET PO SCH (10:13)
[2024-09-08 11:35] VITALS: BP 95/50; TEMP 98.7; O2SAT 100
[2024-09-08 16:00] VITALS: BP 110/60; TEMP 98.1; O2SAT 98
[2024-09-08 19:50] VITALS: BP 115/57; TEMP 98.4; O2SAT 98
[2024-09-09 06:34] VITALS: BP 111/62; TEMP 98.2; O2SAT 98
[2024-09-09 07:45] VITALS: BP 123/57; TEMP 98.4; O2SAT 98
[2024-09-09 07:56] LABS: CALCIUM 8.2 mg/dL (8.5-10.1); CARBON DIOXIDE 28 mmol/L (21-32); CHLORIDE 96 mmol/L (98-107); CREATININE 0.8 mg/dL (0.6-1.3); GLUCOSE 83 mg/dL (74-106); MAGNESIUM 1.8 mg/dL (1.8-2.4); POTASSIUM 4.2 mmol/L (3.5-5.1); SODIUM SERUM 129 mmol/L (136-145); UREA NITROGEN, BLOOD 12 mg/dL (7-18)
[2024-09-09 11:07] VITALS: BP 98/52; TEMP 97.8; O2SAT 98
[2024-09-09] MEDS: VANCOMYCIN IV 1,000 MG in IV DEXTROSE 5% 250 ML IV SCH (15:04)
[2024-09-09 15:31] VITALS: BP 106/53; TEMP 97.7; O2SAT 94
[2024-09-09 19:00] VITALS: BP 105/59; TEMP 97.7; O2SAT 96
[2024-09-09] MEDS: MUPIROCIN 2% OINT 22 GM TUBE NS SCH (20:26)
[2024-09-10 06:00] VITALS: BP 98/57; TEMP 98.1; O2SAT 98
[2024-09-10 10:18] LABS: CALCIUM 8.1 mg/dL (8.5-10.1); CARBON DIOXIDE 23 mmol/L (21-32); CHLORIDE 94 mmol/L (98-107); GLUCOSE 119 mg/dL (74-106); POTASSIUM 3.8 mmol/L (3.5-5.1); SODIUM SERUM 130 mmol/L (136-145); UREA NITROGEN, BLOOD 9 mg/dL (7-18)
[2024-09-10 11:40] VITALS: BP 91/48; TEMP 98.1; O2SAT 97
[2024-09-10 15:43] VITALS: BP 91/53; TEMP 98.8; O2SAT 98
[2024-09-10 17:13] LABS: *SODIUM RNDM,URINE 47 mmol/L (40-220)
[2024-09-10 19:20] VITALS: BP 102/61; TEMP 97.9; O2SAT 96
[2024-09-11 06:29] VITALS: BP 114/48; TEMP 97.5; O2SAT 97
[2024-09-11 07:14] LABS: CALCIUM 8.1 mg/dL (8.5-10.1); CARBON DIOXIDE 28 mmol/L (21-32); CHLORIDE 94 mmol/L (98-107); CREATININE 0.8 mg/dL (0.6-1.3); GLUCOSE 81 mg/dL (74-106); MAGNESIUM 1.9 mg/dL (1.8-2.4); PHOSPHOROUS 3.9 mg/dL (2.5-4.9); POTASSIUM 4.3 mmol/L (3.5-5.1); SODIUM SERUM 126 mmol/L (136-145); UREA NITROGEN, BLOOD 10 mg/dL (7-18); URIC ACID 6.7 mg/dL (2.6-6.0)
[2024-09-11 07:35] LABS: THYROID STIMULATING HORMONE 4.809 mIU/mL (0.358-3.740)
[2024-09-11 12:00] VITALS: BP 110/69; TEMP 98; O2SAT 98
[2024-09-11 16:21] VITALS: BP 108/49; TEMP 97.6; O2SAT 100
[2024-09-11 19:15] VITALS: BP 117/48; TEMP 97.8; O2SAT 98
[2024-09-12 06:36] VITALS: BP 128/57; TEMP 98.3; O2SAT 98
[2024-09-12] MEDS: ACETAMINOPHEN 325 MG TABLET PO PRN (08:58)
[2024-09-12 09:38] LABS: ALANINE AMINOTRANSFERASE 7 U/L (14-59); ALBUMIN 2.5 g/dL (3.4-5.0); ALKALINE PHOSPHATASE 69 U/L (50-136); ASPARTATE AMINOTRANSFERASE 9 U/L (15-37); BILIRUBIN,TOTAL 0.4 mg/dL (0.2-1.0); CARBON DIOXIDE 24 mmol/L (21-32); CHLORIDE 92 mmol/L (98-107); CREATININE 0.9 mg/dL (0.6-1.3); GLUCOSE 132 mg/dL (74-106); MAGNESIUM 1.7 mg/dL (1.8-2.4); PHOSPHOROUS 3.7 mg/dL (2.5-4.9); POTASSIUM 3.9 mmol/L (3.5-5.1); SODIUM SERUM 126 mmol/L (136-145); TOTAL PROTEIN, SERUM 6.5 g/dL (6.4-8.2); UREA NITROGEN, BLOOD 11 mg/dL (7-18)
[2024-09-12 11:38] VITALS: BP 110/72; TEMP 97.6; O2SAT 97
[2024-09-12 15:53] VITALS: BP 104/57; TEMP 98.2; O2SAT 98
[2024-09-12 19:20] VITALS: BP 108/73; TEMP 98; O2SAT 98
[2024-09-13 07:08] LABS: BASOPHILS % (AUTO) 0.4 % (0.0-2.0); EOSINOPHILS # (AUTO) 0.3 K/uL (0.0-0.7); EOSINOPHILS % (AUTO) 6.6 % (0.0-7.0); HEMATOCRIT 33.3 % (31.2-41.9); HEMOGLOBIN 11.5 g/dL (10.9-14.3); LYMPHOCYTES # (AUTO) 1.7 K/uL (0.8-4.8); LYMPHOCYTES % (AUTO) 35.1 % (20.5-51.5); MEAN CORPUSCULAR HEMOGLOBIN 28.2 uug (24.7-32.8); MEAN CORPUSCULAR HGB CONC 35 g/dL (32.3-35.6); MEAN CORPUSCULAR VOLUME 81.2 fL (75.5-95.3); MONOCYTES # (AUTO) 0.8 K/uL (0.1-1.30); MONOCYTES % (AUTO) 16.2 % (0.0-11.0); NEUTROPHILS % (AUTO) 41.7 % (38.5-71.5); PLATELET COUNT (AUTO) 138 K/uL (179-408); RED CELL DISTRIBUTION WIDTH 14.8 % (12.3-17.7); WHITE BLOOD COUNT (AUTO) 4.9 K/uL (3.8-11.8)
[2024-09-13 07:09] VITALS: BP 94/58; TEMP 97.9; O2SAT 93
[2024-09-13 07:12] VITALS: BP 105/67; TEMP 97.9; O2SAT 93
[2024-09-13 07:13] VITALS: BP 143/78; TEMP 97.9; O2SAT 93
[2024-09-13 07:19] VITALS: BP 139/49; TEMP 97.7; O2SAT 95
[2024-09-13 07:43] LABS: DIFFERENTIAL COMMENT 1
[2024-09-13 07:59] LABS: ALANINE AMINOTRANSFERASE 8 U/L (14-59); ALBUMIN 2.4 g/dL (3.4-5.0); ALKALINE PHOSPHATASE 61 U/L (50-136); ASPARTATE AMINOTRANSFERASE 10 U/L (15-37); BILIRUBIN,DIRECT 0.1 mg/dL (0.0-0.2); BILIRUBIN,TOTAL 0.3 mg/dL (0.2-1.0); CALCIUM 8.2 mg/dL (8.5-10.1); CARBON DIOXIDE 27 mmol/L (21-32); CHLORIDE 95 mmol/L (98-107); CHOLESTEROL 121 mg/dL (<200); CREATININE 0.8 mg/dL (0.6-1.3); GLUCOSE 77 mg/dL (74-106); HDL CHOLESTEROL 37 mg/dL (40-60); MAGNESIUM 1.8 mg/dL (1.8-2.4); PHOSPHOROUS 3.6 mg/dL (2.5-4.9); POTASSIUM 4.2 mmol/L (3.5-5.1); SODIUM SERUM 130 mmol/L (136-145); TOTAL PROTEIN, SERUM 6.3 g/dL (6.4-8.2); TRIGLYCERIDES 63 MG/DL (30-150); UREA NITROGEN, BLOOD 11 mg/dL (7-18)
[2024-09-13] MEDS: REMEDY ESSENTIAL ZINC PASTE 113 GM TP PRN (08:49)
[2024-09-13 08:52] LABS: VANCOMYCIN,TROUGH 21.1 ug/mL (10.0-20.0)
[2024-09-13 08:55] LABS: VALPROIC ACID 63 ug/mL (50-100)
[2024-09-13 11:46] VITALS: BP 114/70; TEMP 97.9; O2SAT 97
[2024-09-13 12:07] LABS: EOSINOPHILS % (MANUAL) 7 % (0-8); LYMPHOCYTES % (MANUAL) 35 % (20-40); MONOCYTES % (MANUAL) 16 % (2-10); NEUTROPHILS % (MANUAL) 42 % (42-75); PLATELET ESTIMATE DECREASED
[2024-09-13 14:17] VITALS: BP 109/41; TEMP 97.7; O2SAT 99
[2024-09-13] MEDS ORDERED: LINE600T12 PO (16:09)
== END 2024-09-13 18:05 | DRG 602 ==
LOC: ER 11:49 → MEDSURG3 15:18
PROVIDERS: ADMIT Internal Medicine; ATTEND Internal Medicine
PROC: 05HD33Z Insertion of Infusion Device into Right Cephalic Vein, Percutaneous Approach (ICD-10-PCS; principal; 2024-09-12)
DX: L03.115 Cellulitis of right lower limb (principal); G93.41 Metabolic encephalopathy; I50.33 Acute on chronic diastolic (congestive) heart failure; E87.1 Hypo-osmolality and hyponatremia; I48.20 Chronic atrial fibrillation, unspecified; D68.59 Other primary thrombophilia; L03.116 Cellulitis of left lower limb; Z66 Do not resuscitate; I11.0 Hypertensive heart disease with heart failure; E66.9 Obesity, unspecified; Z68.31 Body mass index [BMI] 31.0-31.9, adult; G20.A1 Parkinson's disease without dyskinesia, without mention of fluctuations; G30.9 Alzheimer's disease, unspecified; F02.80 Dementia in other diseases classified elsewhere, unspecified severity, without behavioral disturbance, psychotic disturbance, mood disturbance, and anxiety; F25.9 Schizoaffective disorder, unspecified; Z74.09 Other reduced mobility; J44.9 Chronic obstructive pulmonary disease, unspecified; Z88.0 Allergy status to penicillin; Z86.16 Personal history of COVID-19; Z79.01 Long term (current) use of anticoagulants; Z79.899 Other long term (current) drug therapy
CPT/HCPCS: 36415; 71045; 80164; 83605; 83735; 84100; 84300; 84443; 84550; 85025; 85730; 87040; A4606; A4663; G0378; J1938; J1956; J3370; J7040; J7050